=== PATIENT | male | born 1960 | race Caucasian/White ===

== ENCOUNTER 2018-01-20 15:42 | Inpatient (IN) | payer MEDICAID ==
[~2018-01-20] VITALS: Ht 182.9 cm; Wt 119.9 kg
--- NOTE | ~2018-01-20 | CN ---
PATIENT NAME:DONI GAR MEDICAL RECORD: [id number] : 62 LOCATION:D. D.2111 ADMIT DATE: 01/20/18 ACCOUNT: [id number] CONSULTING PHYSICIAN: RANJEET HACKETT MD REFERRING PHYSICIAN: LIZET CANTOR MD DATE OF CONSULTATION: 01/21/2018 CONSULT REQUESTING PHYSICIAN: Lizet Cantor MD REASON FOR CONSULTATION: Acute exacerbation of COPD, bullous emphysema. HISTORY OF PRESENT ILLNESS: Mr. Gar is a 57-year-old gentleman who has a history of COPD and smoking. The patient was visiting [place] and he flew from [place] to [place] and then he was driving back from [place]. Yesterday morning, the patient developed bronchitis, cough, and sputum production. He was feeling very hot. He had worsening shortness of breath and the patient came to the ER. He denies any leg swelling and pain. There are no night sweats. Now, he is feeling a little bit better after the nebulized medication. REVIEW OF THE SYSTEM: Mainly in the history of present illness. PAST MEDICAL HISTORY: 1. COPD. 2. Congestive heart failure. 3. Hypertension. 4. Type 2 diabetes mellitus. 5. Ex-smoker. 6. Obesity. PAST SURGICAL HISTORY: Nonsignificant. ALLERGIES: There are no known drug allergies. HOME MEDICATIONS: Lasix and metformin. His other medications are reviewed. PERSONAL AND SOCIAL HISTORY: The patient was a smoker, who quit 4 years ago. He is drinking occasionally. FAMILY HISTORY: Noncontributory. PHYSICAL EXAMINATION: GENERAL: Now, the patient is lying comfortably in bed. He is wearing nasal cannula oxygen. He is not in acute distress. VITAL SIGNS: The pulse ox is 92% on 2 liters nasal cannula. HEENT: Conjunctivae are pink. Sclerae not icteric. NECK: Supple. No JVD. CHEST: There is no wheeze and no rale. HEART: Rhythm regular. Normal sound. No murmur. ABDOMEN: Abdomen is soft. Bowel sounds present. No hepatosplenomegaly. RECTAL: Deferred. EXTREMITIES: No cyanosis. No clubbing. No pedal edema. SKIN: Warm. Normal turgor. CENTRAL NERVOUS SYSTEM: The patient is awake and alert. There is no obvious cranial nerve abnormality. The gait was not tested. CONSULT REPORT [id number] DONI GAR CT scan of the chest: There is bullous emphysema, right upper lobe worse than left. There is no PE, no pneumothorax. OTHER LAB DATA: CBC; WBC 8, hemoglobin 14.5, hematocrit 43.3, and platelet count is 318. Chemistry; sodium 138, potassium 4.2. Liver enzymes within normal range. IMPRESSION: 1. Acute hypoxic respiratory failure. 2. Acute exacerbation of COPD. 3. Acute tracheobronchitis. 4. Bullous emphysema, right more than left. 5. Congestive heart failure, most likely chronic systolic dysfunction. 6. Hypertension. 7. Type 2 diabetes mellitus. RECOMMENDATION: 1. Methylprednisolone IV, albuterol/ipratropium nebulizer. Start on Brovana, budesonide nebulizer; Mucinex DM. 2. Continue empiric antibiotic. 3. Check alpha 1 antitrypsin level and phenotype. Followup labs and chest radiograph. Dr. Cantor, thank you for involving me in the care of Mr. Gar. TRANSINT:[id number] Voice Confirmation ID: [id number] DOCUMENT ID: [id number] RANJEET HACKETT MD at 1340 CC: LIZET CANTOR [phone] DICTATION DATE: 01/21/18 1621 BAKERY DECORATOR: 01/21/18 1653 DIS IN 01/24/18 [place] [id number] [place] [address]
[2018-01-20 16:22] LABS: BASOPHILS 0.4 % (0-2); EOSINOPHILS 2.2 % (0-7); HEMATOCRIT 43.3 % (42.0-54.0); HEMOGLOBIN 14.5 g/dL (13.5-17.5); IMMATURE GRANULOCYTES 0.5 % (0-5); LYMPHOCYTES 16.1 % (15-50); MCH 30.2 pg (26.0-34.0); MCHC 33.5 g/dL (31.0-37.0); MCV 90.2 fL (80.0-100.0); MEAN PLATELET VOLUME 9.8 fL (7.4-10.4); MONOCYTES 10.2 % (2-11); NEUTROPHILS 70.6 % (40-80); PLATELET COUNT 318 10x3/uL (130-400)
[2018-01-20 16:52] LABS: ALBUMIN 3.7 g/dL (3.4-5.0); ANION GAP 13.7 mmol/L (8-16); BILIRUBIN - TOTAL 0.5 mg/dL (0.2-1.3); CALCIUM 8.7 mg/dL (8.5-10.1); CARBON DIOXIDE 27.5 mmol/L (21.0-32.0); CREATININE - SERUM 1.1 mg/dL (0.6-1.3); POTASSIUM - SERUM 4.2 mmol/L (3.5-5.1)
[2018-01-21 13:47] VITALS: BMI 37.1
[2018-01-21 17:50] VITALS: BP 162/98; Ht 182.9 cm; Wt 119.9 kg
[2018-01-21] MEDS ORDERED: PRINIVIL20 MG PO (18:16)
[2018-01-21] MEDS ORDERED: COREG25 MG PO (18:17)
[2018-01-21] MEDS ORDERED: GLUCOPHAGE500 MG PO (18:17)
[2018-01-21 19:00] VITALS: BP 157/100
[2018-01-22 04:00] VITALS: BP 161/97
[2018-01-22 09:15] VITALS: BP 128/83
[2018-01-22 11:39] VITALS: BP 143/95
[2018-01-22 11:53] LABS: BASOPHILS 0 % (0-2); EOSINOPHILS 0 % (0-7); HEMATOCRIT 42.2 % (42.0-54.0); HEMOGLOBIN 13.5 g/dL (13.5-17.5); IMMATURE GRANULOCYTES 0.4 % (0-5); LYMPHOCYTES 4.9 % (15-50); MCH 29.5 pg (26.0-34.0); MEAN PLATELET VOLUME 9.9 fL (7.4-10.4); MONOCYTES 7.6 % (2-11); NEUTROPHILS 87.1 % (40-80); PLATELET COUNT 292 10x3/uL (130-400); RBC 4.57 10x6/uL (4.20-6.10); RDW 14.6 % (11.5-14.5)
[2018-01-22 12:00] LABS: WBC 15.3 10x3/uL (4.8-10.8)
[2018-01-22 12:01] LABS: MCV 92.3 fL (80.0-100.0)
[2018-01-22 12:27] LABS: ANION GAP 13.5 mmol/L (8-16); CALCIUM 8.6 mg/dL (8.5-10.1); CARBON DIOXIDE 28.8 mmol/L (21.0-32.0); CREATININE - SERUM 1.2 mg/dL (0.6-1.3); POTASSIUM - SERUM 4.3 mmol/L (3.5-5.1)
[2018-01-22 16:43] VITALS: BP 131/84
[2018-01-22 20:00] VITALS: BP 159/93
[2018-01-23] VITALS: BP 123/83
[2018-01-23 04:00] VITALS: BP 123/65
[2018-01-23 07:30] VITALS: BP 138/94
[2018-01-23 12:06] LABS: BASOPHILS 0.1 % (0-2); EOSINOPHILS 0 % (0-7); HEMATOCRIT 47.2 % (42.0-54.0); HEMOGLOBIN 15.2 g/dL (13.5-17.5); IMMATURE GRANULOCYTES 0.4 % (0-5); LYMPHOCYTES 5.6 % (15-50); MCHC 32.2 g/dL (31.0-37.0); MCV 93.1 fL (80.0-100.0); NEUTROPHILS 83.9 % (40-80); PLATELET COUNT 321 10x3/uL (130-400); RBC 5.07 10x6/uL (4.20-6.10); RDW 14.8 % (11.5-14.5); WBC 17.1 10x3/uL (4.8-10.8)
[2018-01-23 12:30] LABS: ANION GAP 9.6 mmol/L (8-16); CALCIUM 8.8 mg/dL (8.5-10.1); CARBON DIOXIDE 35.7 mmol/L (21.0-32.0); CREATININE - SERUM 1.1 mg/dL (0.6-1.3); POTASSIUM - SERUM 4.3 mmol/L (3.5-5.1)
[2018-01-23 13:03] VITALS: BP 144/90
[2018-01-23 15:43] VITALS: BP 136/93
[2018-01-24 01:18] VITALS: BP 152/90
[2018-01-24 06:37] VITALS: BP 145/86
[2018-01-24 07:21] LABS: CALC OSMOLALITY 284 mosm/kg (275-300); CALCIUM 8.1 mg/dL (8.5-10.1); CARBON DIOXIDE 34.4 mmol/L (21.0-32.0); CHLORIDE - SERUM 99 mmol/L (98-107); GLUCOSE 212 mg/dL (74-106); POTASSIUM - SERUM 4.3 mmol/L (3.5-5.1); SODIUM 138 mmol/L (136-145); UREA NITROGEN 21 mg/dL (7-18); eGFR NON AFRICAN AMERICAN 82 mL/min (90-120)
[2018-01-24 07:25] LABS: BASOPHILS 0.1 % (0-2); EOSINOPHILS 0 % (0-7); HEMATOCRIT 44.5 % (42.0-54.0); HEMOGLOBIN 14.1 g/dL (13.5-17.5); IMMATURE GRANULOCYTES 0.1 % (0-5); LYMPHOCYTES 9.6 % (15-50); MCH 29.2 pg (26.0-34.0); MCHC 31.7 g/dL (31.0-37.0); MCV 92.1 fL (80.0-100.0); MONOCYTES 10.1 % (2-11); NEUTROPHILS 80.1 % (40-80); PLATELET COUNT 314 10x3/uL (130-400); RBC 4.83 10x6/uL (4.20-6.10); RDW 14.3 % (11.5-14.5)
[2018-01-24 07:27] LABS: WBC 8.6 10x3/uL (4.8-10.8)
[2018-01-24 08:44] VITALS: BP 147/82
[2018-01-24 11:49] VITALS: BP 149/97
[2018-01-24] MEDS ORDERED: IPRAT-ALBUT 0.5-3 ML INH (12:53)
[2018-01-24] MEDS ORDERED: PREDNISONE10 MG PO (12:54)
[2018-01-24] MEDS ORDERED: LEVAQUIN750 MG PO (12:54)
[2018-01-24] MEDS ORDERED: SYMBICORT 16010.2 GM INH (12:58)
[2018-01-24 17:00] VITALS: BP 158/115
== END 2018-01-24 19:51 | disposition home or self-care (01) | DRG 189 ==
LOC: D.ER 15:42 → D.EDHOLD 20:59 → D.M2 20:59 → D.SDCHOLD 01-21 09:42 → D.EDHOLD 01-21 09:42 → D.M2 01-21 16:39
PROVIDERS: Emergency Medicine; Family Medicine
DX: J96.01 Acute respiratory failure with hypoxia (principal); J44.0 Chronic obstructive pulmonary disease with (acute) lower respiratory infection; J44.1 Chronic obstructive pulmonary disease with (acute) exacerbation; I50.22 Chronic systolic (congestive) heart failure; J20.9 Acute bronchitis, unspecified; E66.9 Obesity, unspecified; Z68.37 Body mass index [BMI] 37.0-37.9, adult; I11.0 Hypertensive heart disease with heart failure; E11.65 Type 2 diabetes mellitus with hyperglycemia; J43.9 Emphysema, unspecified; Z87.891 Personal history of nicotine dependence

== ENCOUNTER 2018-01-25 11:44 | Inpatient (IN) | payer MEDICAID ==
[~2018-01-25] VITALS: Ht 182.9 cm; Wt 120.3 kg
--- NOTE | ~2018-01-25 | CN ---
PATIENT NAME:DONI GAR MEDICAL RECORD: [id number] : 62 LOCATION:D.MS Velez2224 ADMIT DATE: 01/25/18 ACCOUNT: [id number] CONSULTING PHYSICIAN: RANJEET HACKETT MD REFERRING PHYSICIAN: LIZET CANTOR MD DATE OF CONSULTATION: 01/25/2018 CONSULT REQUESTING PHYSICIAN: Lizet Cantor MD REASON FOR CONSULTATION: Bilateral pneumonia. HISTORY OF PRESENT ILLNESS: Mr. Gar is a 57-year-old gentleman who was just discharged yesterday. According to the patient, last night he could not sleep with worsening shortness of breath, though he got his inhaled nebulizer last night. Also, his blood sugar was about 300. The patient came in back to the ER. Chest radiograph showed that he has bilateral lower lobe infiltrate. The patient denies any fever and chill. There are no night sweats, no chest pain. REVIEW OF SYSTEMS: As in the history of present illness. PAST MEDICAL HISTORY: 1. COPD. 2. Congestive heart failure. 3. Hypertension. 4. Type 2 diabetes mellitus. 5. Obesity. PAST SURGICAL HISTORY: Nonsignificant. ALLERGIES: There are no known drug allergies. MEDICATIONS: He is on Symbicort inhaler, albuterol/ipratropium nebulizer. All other medications reviewed. PERSONAL AND SOCIAL HISTORY: The patient is an ex-smoker. He quit it 4 years ago. He is a nondrinker. FAMILY HISTORY: Noncontributory. PHYSICAL EXAMINATION: GENERAL: Now, the patient is lying comfortably. VITAL SIGNS: His SpO2 is 92% on 2 liters nasal cannula. HEENT: Conjunctivae pink, sclerae nonicteric. NECK: Supple. No JVD. CHEST: There are bilateral basal crackles and wheeze on forceful expiration. HEART: Rhythm regular, normal sound, no murmur. ABDOMEN: Soft. Bowel sounds present. No hepatosplenomegaly. RECTAL: Deferred. EXTREMITIES: No cyanosis, no clubbing, no pedal edema. SKIN: Extremities are warm, normal turgor. CENTRAL NERVOUS SYSTEM: The patient is awake and alert. There are no obvious cranial nerve abnormalities. The gait was not tested. CHEST RADIOGRAPH: Shows bilateral infiltrate. CONSULT REPORT [id number] DONI GAR OTHER LABORATORY DATA: CBC: WBC 7.1, hemoglobin 15.5, hematocrit 45.7, and the platelet count is 281. Chemistry: Sodium 135, potassium 3.3, and creatinine 1.4. IMPRESSION: 1. Acute hypoxic respiratory failure. 2. Acute exacerbation of chronic obstructive pulmonary disease. 3. Bilateral lower lobe pneumonia, most likely hospital-acquired pneumonia with the patient's recent hospitalization. 4. Bullous emphysema, right more than the left. 5. Hypokalemia. 6. Uncontrolled hyperglycemia. 7. Congestive heart failure, most likely chronic systolic dysfunction. RECOMMENDATIONS: 1. Start methylprednisolone IV, Levaquin and cefepime IV to cover for the hospital-acquired pneumonia. 2. Singulair 10 mg a day. 3. Albuterol and ipratropium nebulizer. 4. Brovana and budesonide nebulizer. 5. Supplemental oxygen. 6. We will follow up labs and chest radiograph in the morning. Dr. Cantor thank you for involving me in the care of Mr. Gar. TRANSINT:[id number] Voice Confirmation ID: [id number] DOCUMENT ID: [id number] RANJEET HACKETT MD at 1340 CC: LIZET CANTOR [phone] DICTATION DATE: 01/25/18 1534 DIGITAL MARKETING INTERN: 01/25/18 2352 DIS IN 01/30/18 [place] [id number] [facility] [place] [address]
[~2018-01-25 11:44] MED LIST: COREG25 MG PO; GLUCOPHAGE500 MG PO; IPRAT-ALBUT 0.5-3 ML INH; LEVAQUIN750 MG PO; PREDNISONE10 MG PO; PRINIVIL20 MG PO; SYMBICORT 16010.2 GM INH
[2018-01-25 12:22] LABS: BASOPHILS 0.1 % (0-2); EOSINOPHILS 0.6 % (0-7); HEMATOCRIT 47.5 % (42.0-54.0); HEMOGLOBIN 15.5 g/dL (13.5-17.5); IMMATURE GRANULOCYTES 0.1 % (0-5); LYMPHOCYTES 16.8 % (15-50); MCH 29.9 pg (26.0-34.0); MCHC 32.6 g/dL (31.0-37.0); MCV 91.7 fL (80.0-100.0); MEAN PLATELET VOLUME 10.1 fL (7.4-10.4); NEUTROPHILS 70.4 % (40-80); PLATELET COUNT 289 10x3/uL (130-400); RBC 5.18 10x6/uL (4.20-6.10); RDW 14.4 % (11.5-14.5); WBC 7.1 10x3/uL (4.8-10.8)
[2018-01-25 12:29] LABS: ALBUMIN 3.1 g/dL (3.4-5.0); ANION GAP 7.3 mmol/L (8-16); BILIRUBIN - TOTAL 0.43 mg/dL (0.2-1.3); CALCIUM 8.8 mg/dL (8.5-10.1); PROTEIN - SERUM 7.1 g/dL (6.4-8.2)
[2018-01-25 12:31] LABS: CREATININE - SERUM 1.4 mg/dL (0.6-1.3); POTASSIUM - SERUM 3.3 mmol/L (3.5-5.1)
[2018-01-25 16:58] VITALS: BP 140/89
[2018-01-25 19:29] LABS: APPEARANCE CLEAR (CLEAR); BILIRUBIN NEGATIVE (NEGATIVE); COLOR YELLOW (YELLOW); GLUCOSE NEGATIVE (NEGATIVE); KETONE NEGATIVE (NEGATIVE); NITRITE NEGATIVE (NEGATIVE); PROTEIN NEGATIVE (NEGATIVE); SPECIFIC GRAVITY 1.015 (1.005-1.020); UROBILINOGEN NORMAL (NORMAL)
[2018-01-25 19:31] LABS: BACTERIA FEW /hpf (NONE SEEN); EPITHELIAL CELLS 0-5 /hpf (0-5); RED CELLS - URINE OCC /hpf (0-5)
[2018-01-25 23:07] VITALS: BP 116/79
[2018-01-26 01:50] VITALS: BP 116/79; BMI 35.9
[2018-01-26 05:06] VITALS: BP 102/70
[2018-01-26 05:18] LABS: BASOPHILS 0.2 % (0-2); EOSINOPHILS 0 % (0-7); HEMATOCRIT 45.3 % (42.0-54.0); HEMOGLOBIN 14.3 g/dL (13.5-17.5); IMMATURE GRANULOCYTES 0.2 % (0-5); MCH 28.8 pg (26.0-34.0); MCHC 31.6 g/dL (31.0-37.0); MCV 91.1 fL (80.0-100.0); MEAN PLATELET VOLUME 10.5 fL (7.4-10.4); MONOCYTES 5.5 % (2-11); NEUTROPHILS 82.1 % (40-80); PLATELET COUNT 273 10x3/uL (130-400); RBC 4.97 10x6/uL (4.20-6.10); RDW 14.2 % (11.5-14.5); WBC 5.6 10x3/uL (4.8-10.8)
[2018-01-26 05:42] LABS: ALBUMIN 2.9 g/dL (3.4-5.0); ALKALINE PHOSPHATASE 62 U/L (46-116); ALT (SGPT) 55 U/L (10-68); BILIRUBIN - TOTAL 0.31 mg/dL (0.2-1.3); CALC OSMOLALITY 286 mosm/kg (275-300); CALCIUM 8.5 mg/dL (8.5-10.1); CARBON DIOXIDE 29.1 mmol/L (21.0-32.0); CHLORIDE - SERUM 97 mmol/L (98-107); CKMB 0.6 U/L (0.0-3.6); CREATININE - SERUM 1.1 mg/dL (0.6-1.3); GLUCOSE 288 mg/dL (74-106); PROTEIN - SERUM 6.9 g/dL (6.4-8.2); SODIUM 135 mmol/L (136-145); UREA NITROGEN 29 mg/dL (7-18); eGFR NON AFRICAN AMERICAN 73 mL/min (90-120)
[2018-01-26 05:51] LABS: POTASSIUM - SERUM 4.2 mmol/L (3.5-5.1); TROPONIN-I < 0.017 ng/mL (0.000-0.060)
[2018-01-26 08:18] VITALS: BP 119/80
[2018-01-26 13:20] VITALS: BP 152/92
[2018-01-26 15:15] VITALS: Ht 182.9 cm; Wt 120.3 kg
[2018-01-26 16:47] VITALS: BP 143/97
[2018-01-26 20:38] VITALS: BP 140/94
[2018-01-27 00:44] VITALS: BP 121/82
[2018-01-27 06:38] LABS: BASOPHILS 0.1 % (0-2); EOSINOPHILS 0 % (0-7); HEMATOCRIT 44.2 % (42.0-54.0); HEMOGLOBIN 14.2 g/dL (13.5-17.5); IMMATURE GRANULOCYTES 0.2 % (0-5); MCH 29.2 pg (26.0-34.0); MCHC 32.1 g/dL (31.0-37.0); MCV 90.8 fL (80.0-100.0); MEAN PLATELET VOLUME 10.5 fL (7.4-10.4); MONOCYTES 8.9 % (2-11); NEUTROPHILS 78.8 % (40-80); PLATELET COUNT 272 10x3/uL (130-400); RBC 4.87 10x6/uL (4.20-6.10); RDW 13.7 % (11.5-14.5)
[2018-01-27 06:41] LABS: WBC 8.7 10x3/uL (4.8-10.8)
[2018-01-27 07:06] LABS: ALBUMIN 2.9 g/dL (3.4-5.0); ALKALINE PHOSPHATASE 60 U/L (46-116); ALT (SGPT) 49 U/L (10-68); BILIRUBIN - TOTAL 0.26 mg/dL (0.2-1.3); CALC OSMOLALITY 283 mosm/kg (275-300); CALCIUM 8.7 mg/dL (8.5-10.1); CARBON DIOXIDE 30.9 mmol/L (21.0-32.0); CHLORIDE - SERUM 97 mmol/L (98-107); CREATININE - SERUM 0.9 mg/dL (0.6-1.3); GLUCOSE 249 mg/dL (74-106); POTASSIUM - SERUM 4.8 mmol/L (3.5-5.1); PROTEIN - SERUM 6.6 g/dL (6.4-8.2); SODIUM 136 mmol/L (136-145); UREA NITROGEN 25 mg/dL (7-18); eGFR NON AFRICAN AMERICAN > 90 mL/min (90-120)
[2018-01-27 08:39] VITALS: BP 144/64
[2018-01-27 13:36] VITALS: BP 112/82
[2018-01-27 16:07] VITALS: BP 122/81
[2018-01-27 22:18] VITALS: BP 130/82
[2018-01-28 04:29] VITALS: BP 119/71
[2018-01-28 06:24] LABS: ALBUMIN 2.9 g/dL (3.4-5.0); ALKALINE PHOSPHATASE 57 U/L (46-116); ALT (SGPT) 43 U/L (10-68); BILIRUBIN - TOTAL 0.25 mg/dL (0.2-1.3); CALCIUM 8.9 mg/dL (8.5-10.1); CARBON DIOXIDE 31.1 mmol/L (21.0-32.0); CHLORIDE - SERUM 99 mmol/L (98-107); POTASSIUM - SERUM 4.1 mmol/L (3.5-5.1); PROTEIN - SERUM 7.1 g/dL (6.4-8.2); SODIUM 135 mmol/L (136-145); UREA NITROGEN 27 mg/dL (7-18); eGFR NON AFRICAN AMERICAN 82 mL/min (90-120)
[2018-01-28 06:25] LABS: CALC OSMOLALITY 278 mosm/kg (275-300); GLUCOSE 174 mg/dL (74-106)
[2018-01-28 06:45] LABS: BASOPHILS 0.1 % (0-2); EOSINOPHILS 0 % (0-7); HEMATOCRIT 44.6 % (42.0-54.0); HEMOGLOBIN 14.5 g/dL (13.5-17.5); IMMATURE GRANULOCYTES 0.4 % (0-5); LYMPHOCYTES 12.7 % (15-50); MCH 29.4 pg (26.0-34.0); MCHC 32.5 g/dL (31.0-37.0); MCV 90.3 fL (80.0-100.0); MEAN PLATELET VOLUME 10.5 fL (7.4-10.4); MONOCYTES 11.8 % (2-11); PLATELET COUNT 303 10x3/uL (130-400); RBC 4.94 10x6/uL (4.20-6.10); RDW 13.7 % (11.5-14.5)
[2018-01-28 09:11] VITALS: BP 134/84
[2018-01-28 12:46] VITALS: BP 132/89
[2018-01-28 16:46] VITALS: BP 143/94
[2018-01-28 20:00] VITALS: BP 140/84
[2018-01-29] VITALS: BP 106/64
[2018-01-29 04:00] VITALS: BP 141/83
[2018-01-29 05:49] LABS: BASOPHILS 0.1 % (0-2); EOSINOPHILS 0.6 % (0-7); HEMATOCRIT 43.4 % (42.0-54.0); HEMOGLOBIN 14.1 g/dL (13.5-17.5); IMMATURE GRANULOCYTES 0.7 % (0-5); LYMPHOCYTES 19.7 % (15-50); MCH 29.1 pg (26.0-34.0); MCHC 32.5 g/dL (31.0-37.0); MCV 89.5 fL (80.0-100.0); MEAN PLATELET VOLUME 10.3 fL (7.4-10.4); MONOCYTES 16.7 % (2-11); NEUTROPHILS 62.2 % (40-80); PLATELET COUNT 296 10x3/uL (130-400); RBC 4.85 10x6/uL (4.20-6.10); RDW 13.6 % (11.5-14.5)
[2018-01-29 06:11] LABS: ALBUMIN 2.6 g/dL (3.4-5.0); ALKALINE PHOSPHATASE 50 U/L (46-116); ALT (SGPT) 43 U/L (10-68); CALC OSMOLALITY 281 mosm/kg (275-300); CALCIUM 8.1 mg/dL (8.5-10.1); CARBON DIOXIDE 31.4 mmol/L (21.0-32.0); CHLORIDE - SERUM 99 mmol/L (98-107); CREATININE - SERUM 0.9 mg/dL (0.6-1.3); POTASSIUM - SERUM 3.5 mmol/L (3.5-5.1); PROTEIN - SERUM 6.4 g/dL (6.4-8.2); SODIUM 138 mmol/L (136-145); UREA NITROGEN 27 mg/dL (7-18); eGFR NON AFRICAN AMERICAN > 90 mL/min (90-120)
[2018-01-29 06:12] LABS: GLUCOSE 124 mg/dL (74-106)
[2018-01-29 08:48] VITALS: BP 140/90
[2018-01-29 12:13] VITALS: BP 119/78
[2018-01-29 16:12] VITALS: BP 120/70
[2018-01-29 21:39] VITALS: BP 136/89
[2018-01-30 05:33] LABS: BASOPHILS 0.1 % (0-2); EOSINOPHILS 0.9 % (0-7); HEMATOCRIT 43.1 % (42.0-54.0); IMMATURE GRANULOCYTES 1.5 % (0-5); LYMPHOCYTES 24.5 % (15-50); MCH 29.2 pg (26.0-34.0); MCHC 32.5 g/dL (31.0-37.0); MCV 89.8 fL (80.0-100.0); MEAN PLATELET VOLUME 10.2 fL (7.4-10.4); MONOCYTES 13.3 % (2-11); NEUTROPHILS 59.7 % (40-80); PLATELET COUNT 297 10x3/uL (130-400); RDW 13.9 % (11.5-14.5); WBC 11.6 10x3/uL (4.8-10.8)
[2018-01-30 05:34] VITALS: BP 140/82
[2018-01-30 05:50] LABS: ALBUMIN 2.6 g/dL (3.4-5.0); ALKALINE PHOSPHATASE 54 U/L (46-116); ALT (SGPT) 47 U/L (10-68); CALC OSMOLALITY 286 mosm/kg (275-300); CALCIUM 8.3 mg/dL (8.5-10.1); CARBON DIOXIDE 33.9 mmol/L (21.0-32.0); CHLORIDE - SERUM 99 mmol/L (98-107); POTASSIUM - SERUM 3.6 mmol/L (3.5-5.1); PROTEIN - SERUM 6.4 g/dL (6.4-8.2); SODIUM 138 mmol/L (136-145); UREA NITROGEN 27 mg/dL (7-18); eGFR NON AFRICAN AMERICAN 82 mL/min (90-120)
[2018-01-30 05:51] LABS: GLUCOSE 213 mg/dL (74-106)
[2018-01-30 08:09] VITALS: BP 122/87
[2018-01-30] MEDS ORDERED: VIBRAMYCIN 100100 MG PO (08:50)
[2018-01-30] MEDS ORDERED: OMNICEF300 MG PO (08:51)
[2018-01-30 12:52] VITALS: BP 114/79
== END 2018-01-30 17:30 | disposition home or self-care (01) | DRG 177 ==
LOC: D.ER 11:44 → D.MS 14:42
PROVIDERS: Emergency Medicine; Family Medicine
DX: J15.6 Pneumonia due to other Gram-negative bacteria (principal); J96.01 Acute respiratory failure with hypoxia; J44.0 Chronic obstructive pulmonary disease with (acute) lower respiratory infection; J44.1 Chronic obstructive pulmonary disease with (acute) exacerbation; I42.9 Cardiomyopathy, unspecified; I50.32 Chronic diastolic (congestive) heart failure; N17.9 Acute kidney failure, unspecified; J15.212 Pneumonia due to Methicillin resistant Staphylococcus aureus; E87.6 Hypokalemia; E11.65 Type 2 diabetes mellitus with hyperglycemia; I11.0 Hypertensive heart disease with heart failure; K76.0 Fatty (change of) liver, not elsewhere classified; I25.10 Atherosclerotic heart disease of native coronary artery without angina pectoris; K21.9 Gastro-esophageal reflux disease without esophagitis; R19.7 Diarrhea, unspecified; Z87.891 Personal history of nicotine dependence

== ENCOUNTER → 2018-05-08 09:37 | Outpatient (CLI) | payer MEDICAID ==
[2018-01-26 15:15] VITALS: BMI 35.8
[~2018-05-08 09:37] MED LIST changes: +OMNICEF300 MG PO; +VIBRAMYCIN 100100 MG PO
== END | disposition home or self-care (01) ==
LOC: D.RT 09:37
DX: J18.9 Pneumonia, unspecified organism (principal); J44.9 Chronic obstructive pulmonary disease, unspecified

== ENCOUNTER → 2018-06-24 16:10 | Outpatient (CLI) | payer MEDICAID ==
[2018-01-26 15:15] VITALS: BMI 35.8
[~2018-06-24 16:10] MED LIST changes: +AVAPRO300 MG PO; +COMBIVENT RESPIM4 GM INH; +LASIX40 MG PO; +PRILOSEC PO; +PROTONIX40 MG PO
== END | disposition home or self-care (01) ==
LOC: D.CT 16:10
DX: R23.8 Other skin changes (principal)

== ENCOUNTER → 2018-07-08 10:37 | Outpatient (CLI) | payer MEDICAID ==
[2018-01-26 15:15] VITALS: BMI 35.8
== END | disposition home or self-care (01) ==
LOC: D.NM 10:37
DX: R07.9 Chest pain, unspecified (principal)

== ENCOUNTER 2018-07-30 06:33 | Outpatient (CLI) | payer MEDICAID ==
[~2018-07-30] VITALS: Ht 182.9 cm; Wt 128.2 kg
--- NOTE | ~2018-07-30 | HEMODYNAMI ---
PATIENT:DONI GAR MEDICAL RECORD: [id number] : 62 LOCATION:DDAPNHEY ADMISSION DATE: 07/30/18 Generatedon:07/30/20189:07 Patient name: DONI GAR Patient #: [id number] SSN: : 1960 Date of study: 07/30/2018 Page: Of Hemodynamic Procedure Report Patient Data Patient Demographics Procedure consent was obtained First Name: DONI Gender: Male Last Name: CONG : 1960 [facility] Initial: ZHANE Age: 58 year(s) Patient #: [id number] Race: Additional ID: [id number] Contact details Address: [address] [place] [address] ROAD State: [place] City: [facility] Zip code: [address] Past Medical History Allergies: No known allergies Admission Admission Data Admission Date: 07/30/2018 Admission Time: 6:33 Procedure Procedure Types Cath Procedure Diagnostic Procedure C LH w/Coronaries Sedation Charges Moderate Sedation up to 15 minutes Procedure Description Procedure Date Procedure Date: 07/30/2018 Procedure Start Time: 8:52 Procedure End Time: 9:05 Procedure Staff Name Function Tunde Willett MD Performing Physician Sy Pavon RT Monitor Larisa Rodarte RT Scrub Rajeev Owens RN Nurse Procedure Data Cath Procedure Fluoroscopy Diagnostic fluoroscopy Total fluoroscopy Time: 2.9 time: 2.9 min min Diagnostic fluoroscopy Total fluoroscopy dose: 784 dose: 784 mGy mGy Contrast Material Contrast Material Type Amount (ml) Isovue 300 61 Entry Location Entry Primary Successful Side Size Upsize Upsize Entry Closure Villalba ccessful Closure Location (Fr) 1 (Fr) 2 (Fr) Remarks Device Remarks Radial Right 6 Fr Mechanical artery Short Compression Estimated blood loss: 5 ml Diagnostic catheters Device Type Used For End Catheter Placement DIAGNOSTIC Parminder 110cm Procedure 5Fr catheter ([id number]) Procedure Complications No complications Procedure Medications Medication Administration Route Dosage Oxygen etCO2 Nasal cannula 2 l/min Heparin Flush Bag added to field 2 bags (1000units/500ml NS) 0.9% NaCl I.V. 100 ml/hr Radial Cocktail added to field 1 syringe (Verapomil 2mg/Nitro 400mcg/Heparin 1500units) Fentanyl I.V. 50 mcg Versed I.V. 1 mg Fentanyl I.V. 50 mcg Versed I.V. 1 mg Radial Cocktail I.A. 1 syringe (Verapomil 2mg/Nitro 400mcg/Heparin 1500units) Hemodynamics Rest Heart Rate: 0 (bpm) Pressure Samples Time Site Value (mmHg) Purpose Heart Use Rate(bpm) 8:56 LV 162/32,26 Snapshot 90 8:57 LV 155/3,23 Snapshot 77 8:57 LV 163/-1,21 Snapshot 73 8:57 AO 145/97(119) Pullback 82 8:57 LV 159/10,25 Pullback 82 Gradients Valve Time Site 1 Site 2 Mean SEP/DFP Peak To Heart Use (mmHg) (sec/min) Peak Rate (mmHg) (bpm) Aortic 8:57 LV AO 7 23 14 82 159/10,25 145/97(119) Calculations Valve P-P Mean Valve Index Valve Source Name Gradient Area Flow (cm2) Aortic 14 7 14 7 Snapshots Pre Cath Intra NCS Post Cath Vital Signs Time Heart Resp SPO2 etCO2 NIBP (mmHg) Rhythm Pain Sedation Rate (ipm) (%) (mmHg) Status Level (bpm) 8:41:44 78 18 97 0 202/135(176) NSR 0 (11) 10(A) , No pain 8:46:17 75 18 92 29.3 201/120(166) NSR 0 (11) 10(A) , No pain 8:50:51 67 18 88 27.8 195/112(148) NSR 0 (11) 10(A) , No pain 8:55:26 66 19 92 45.9 169/105(132) NSR 0 (11) 9(A) , No pain 8:59:50 69 17 91 45.2 175/94(130) NSR 0 (11) 9(A) , No pain 9:04:18 64 18 94 43.7 158/100(128) NSR 0 (11) 10(A) , No pain Medications Time Medication Route Dose Verified Delivered Reason Notes Effectiveness by by 8:41:56 Oxygen etCO2 2 l/min Tunde Willett MD Owens RN physician cannula 8:42:05 Heparin Flush added 2 bags Tunde Rajeev used for Bag to Brennon Owens RN procedure (1000units/500ml field NS) 8:42:16 0.9% NaCl I.V. 100 Tunde Rajeev Per ml/hr Brennon Owens RN physician 8:42:24 Radial Cocktail added 1 Tunde Rajeev used for (Verapomil to syringe Brennon Owens RN procedure 2mg/Nitro field 400mcg/Heparin 1500units) 8:46:09 Fentanyl I.V. 50 mcg Tunde Rajeev for sedation Brennon Owens RN 8:46:15 Versed I.V. 1 mg Tunde Rajeev for sedation Brennon Owens RN 8:50:14 Fentanyl I.V. 50 mcg Tunde Rajeev for sedation Brennon Owens RN 8:50:19 Versed I.V. 1 mg Tunde Rajeev for sedation Brennon Owens RN 8:54:41 Radial Cocktail I.A. 1 Tunde Tunde for (Verapomil syringe Brennon Willett MD vasodilation 2mg/Nitro 400mcg/Heparin 1500units) Procedure Log Time Note 8:20:24 Rajeev Owens RN sent for patient. Start room use. 8:25:59 Informed consent obtained and on chart 8:26:16 Diagnostic Cath Status : Elective 8:26:25 Time tracking: Regular hours (M-F 7:00 - 5:00) 8:26:29 Plan of Care:Hemodynamics will remain stable., Cardiac rhythm will remain stable., Comfort level will be maintained., Respiratory function will remain adequate., Patient/ family verbilizes understanding of procedure., Procedure tolerated without complication., Recovers from procedure without complications.. 8:32:51 Patient received from Pre/Post Procedure Room to [facility] Alert and oriented. Tansferred to table in Supine position. 8:32:53 Warm blankets applied, and kimberly hugger turned on for patient comfort. 8:32:53 Correct patient and procedure confirmed by team. 8:32:54 ECG and BP/O2 sat monitors applied to patient. 8:39:14 Vital chart was started 8:39:55 Baseline sample Acquired. 8:40:01 Rhythm: sinus rhythm 8:40:03 Baseline sample Acquired. 8:40:20 Baseline sample Acquired. 8:40:25 Full Disclosure recording started 8:40:37 H&P Date Dictated: 07/16/2018 Within 30 days and on chart., H&P Addendum completed by physician on day of procedure. (MUST COMPLETE FOR ALL OUTPATIENTS). 8:40:38 Pre-procedure instructions explained to patient. 8:40:44 Pre-op teaching completed and patient verbalized understanding. 8:40:46 Family in patients room. 8:40:49 Patient NPO since Midnight. 8:40:55 Patient allergic to No known allergies 8:41:56 Oxygen 2 l/min etCO2 Nasal cannula was administered by Rajeev Owens RN; Per physician; 8:42:02 Is the patient allergic to Iodine/contrast media? No. 8:42:05 Heparin Flush Bag (1000units/500ml NS) 2 bags added to field was administered by Rajeev Owens RN; used for procedure; 8:42:15 Is patient on blood thinner?No 8:42:16 0.9% NaCl 100 ml/hr I.V. was administered by Rajeev Owens RN; Per physician; 8:42:19 Patient diabetic? Yes. 8:42:21 If diabetic: On Metformin? Yes 8:42:24 Radial Cocktail (Verapomil 2mg/Nitro 400mcg/Heparin 1500units) 1 syringe added to field was administered by Rajeev Owens RN; used for procedure; 8:42:26 If on Metformin: Last Dose? 07/28/2018 8:42:34 Previous problem with sedation/anesthesia? No ? 8:42:42 Snore? Yes 8:42:42 Sleep apnea? Yes 8:42:44 Deviated septum? No 8:42:45 Opens mouth fully? Yes 8:42:46 Sticks out tongue? Yes 8:42:55 Airway obstruction? Yes "Lung Issues" 8:43:05 Dentures? Yes IN 8:43:20 Pre procedure: right dorsailis pedis pulse 2+ Normal; easily identifiable; not easily obliterated 8:43:22 Modified Darek's test Ulnar < 7 seconds 8:43:24 Patient pain scale 0/10 ?. 8:43:29 IV patent on arrival in left forearm with 0.9% NaCl at [facility]. 8:43:32 Lab results completed and on chart. 8:43:36 Right Radial & Right Groin area was prepped with chlora-prep and draped in sterile fashion 8:43:37 Alarms reviewed by R. N. 8:43:38 Sharps counted by scrub and verified by R.N. 8:43:40 Use device set Radial Dx or PCI 8:43:41 ACIST Syringe (66250) opened to sterile field. 8:43:41 Medline Cath Pack ([id number]) opened to sterile field. 8:43:42 Bag Decanter (2002S) opened to sterile field. 8:43:42 DIAGNOSTIC WIRE .035 260cm J wire (400990) opened to sterile field. 8:43:43 ACIST Hand Control (95900) opened to sterile field. 8:43:43 ACIST Manifold (09868) opened to sterile field. 8:43:47 MBrace Wrist Support ([id number]) opened to sterile field. 8:43:49 SHEATH 6Fr Prelude Radial ([id number]) opened to sterile field. 8:45:40 Physician arrived 8:45:41 --------ALL STOP TIME OUT------ 8:45:42 Final Timeout: patient, procedure, and site verified with staff and physician. All members of the team are in agreement. 8:45:45 Right Radial & Right Groin site verified by team. 8:45:49 Physical assessment completed. ASA score P 2 - A patient with mild systemic disease as per Tunde Willett MD. 8:45:52 Sedation plan: IV Moderate Sedation Medication:Versed, Fentanyl 8:46:09 Fentanyl 50 mcg I.V. was administered by Rajeev Owens RN; for sedation; 8:46:15 Versed 1 mg I.V. was administered by Rajeev Owens RN; for sedation; 8:50:14 Fentanyl 50 mcg I.V. was administered by Rajeev Owens RN; for sedation; 8:50:19 Versed 1 mg I.V. was administered by Rajeev Owens RN; for sedation; 8:51:42 Zero performed for pressure channel P1 8:51:54 Zero performed for pressure channel P1 8:52:06 Baseline sample Acquired. 8:52:12 Procedure started. 8:52:15 Local anesthetic to right radial artery with Lidocaine 2% by Tunde Willett MD.INITIAL ACCESS ONLY 8:54:21 A 6 Fr Short sheath was inserted into the Right Radial artery 8:54:27 A DIAGNOSTIC Parminder 110cm 5Fr catheter (254001) was advanced over the wire and used for Procedure. 8:54:41 Radial Cocktail (Verapomil 2mg/Nitro 400mcg/Heparin 1500units) 1 syringe I.A. was administered by Tunde Willett MD; for vasodilation; 8:56:38 LV hemodynamics recorded. 8:57:01 LV gram done using COPE 8:57:13 Injector settings: Ml/sec: 5, Volume: 15, 8:57:18 EF : 55 % 8:58:06 RCA angiography performed. 8:59:13 LCA angiography performed. 9:00:16 Catheter removed. 9:01:01 TR BAND Large ([id number]) opened to sterile field. 9:01:29 Sheath removed intact; hemostasis achieved with Mechanical Compression to the Right Radial artery. 9:01:33 Procedure ended.(Physican Out) 9:01:58 Fluoroscopy time 02.90 minutes. 9:02:05 Fluoroscopy dose: 784 mGy 9:02:05 Flurop Dose total: 784 9:02:18 Contrast amount:Isovue 300 61ml. 9:02:19 Sharps counted by scrub and verified by R.N. 9:04:08 TR band inflated with 13cc of air. 9:04:09 Insertion/operative site no bleeding no hematoma. 9:04:16 Post right radial artery:stable, soft, clean and dry 9:04:17 Post Procedure Pulses reassessed and unchanged 9:04:19 Post-procedure physical assessment completed. ASA score P 2 - A patient with mild systemic disease as per Tunde Willett MD. 9:04:22 Post procedure rhythm: unchanged. 9:04:24 Estimated blood loss: 5 ml 9:04:25 Post procedure instruction explained to patient.Patient verbalizes understanding. 9:04:25 Patient needs reinforcement of post procedure teaching. 9:04:40 Procedure type changed to Cath procedure, Diagnostic procedure, LHC, LHC w/Coronaries, Sedation Charges, Moderate Sedation up to 15 minutes 9:05:10 Procedure and supply charges have been captured, reviewed, submitted and are correct. 9:05:12 Procedure Complication : No complications 9:05:16 Vital chart was stopped 9:05:17 See physician's report for complete and final results. 9:05:18 Report given to Pre/Post Procedure Room. 9:05:20 Patient transfered to Pre/Post Procedure Room with Stretcher. 9:05:22 Procedure ended. 9:05:22 Full Disclosure recording stopped 9:05:27 End room use (Document Last) Device Usage Item Name Manufacture Quantity Catalog Number Hospital Part Current M inimal Lot# / Charge Number Stock Stock Serial# Code ACIST Syringe Acist 1 66572 636269 706613 252042 2 0 (02533) Medical [employer] Inc Medline Cath Cardinal 1 [id number] 765775 59458 968800 5 Pack Health ([id number]) Bag Decanter Microtek 1 2001S 935269 12800 744688 5 (2001S) Medical Inc. DIAGNOSTIC WIRE [facility] [place] 1 033825 838842 476498 593490 3 0 .035 260cm J wire (987462) ACIST Hand Acist 1 01463 321726 037064 033686 5 Control (03546) [employer] Inc ACIST Manifold Acist 1 07350 470437 616129 521950 5 (57308) [employer] Inc MBrace Wrist Advanced 1 140-0250-00 363449 77871 728648 5 Support Vascular ([id number]) Dynamics SHEATH 6Fr Merit 1 [id number] 681786 119995 163398 5 Prelude Radial Medical ([id number]) DIAGNOSTIC Terumo 1 40-6024 934908 206225 214497 5 Parminder 110cm 5Fr catheter (809616) TR BAND Large Terumo 1 [id number] 672678 852022 173173 4 0 ([id number]) Signature Audit [place] Stage Time Signature Unsigned Intra-Procedure 07/30/2018 Sy Pavon 9:07:05 AM RT(R) Signatures Monitor : Sy Pavon RT Signature : Date : Time : [facility] [address] [place] [address]
[~2018-07-30 06:33] MED LIST changes: -AVAPRO300 MG PO; -COMBIVENT RESPIM4 GM INH; -LASIX40 MG PO; -PRILOSEC PO; -PROTONIX40 MG PO
[2018-07-30] MEDS ORDERED: COMBIVENT RESPIM4 GM INH (06:59)
[2018-07-30] MEDS ORDERED: AVAPRO300 MG PO (07:00)
[2018-07-30] MEDS ORDERED: LASIX40 MG PO (07:01)
[2018-07-30] MEDS ORDERED: PROTONIX40 MG PO (07:01)
[2018-07-30] MEDS ORDERED: PRILOSEC PO (07:02)
[2018-07-30 07:07] VITALS: BP 173/104; Ht 182.9 cm; Wt 128.2 kg
[2018-07-30 07:09] LABS: BASOPHILS 0.5 % (0-2); EOSINOPHILS 2.9 % (0-7); HEMATOCRIT 43.8 % (42.0-54.0); HEMOGLOBIN 14.6 g/dL (13.5-17.5); IMMATURE GRANULOCYTES 0.2 % (0-5); LYMPHOCYTES 23.9 % (15-50); MCH 29.2 pg (26.0-34.0); MCHC 33.3 g/dL (31.0-37.0); MCV 87.6 fL (80.0-100.0); MONOCYTES 11.9 % (2-11); NEUTROPHILS 60.6 % (40-80); PLATELET COUNT 305 10x3/uL (130-400); RDW 14.5 % (11.5-14.5); WBC 9.2 10x3/uL (4.8-10.8)
[2018-07-30 07:26] LABS: ANION GAP 11.8 mmol/L (8-16); CALCIUM 8.3 mg/dL (8.5-10.1); CARBON DIOXIDE 29.2 mmol/L (21.0-32.0); CREATININE - SERUM 1.2 mg/dL (0.6-1.3)
== END 2018-07-30 11:30 | disposition home or self-care (01) ==
LOC: D.CATH 06:33
PROVIDERS: Internal Medicine Cardiovascular Disease
DX: I20.9 Angina pectoris, unspecified (principal); I11.0 Hypertensive heart disease with heart failure; I50.9 Heart failure, unspecified; J44.9 Chronic obstructive pulmonary disease, unspecified; Z87.891 Personal history of nicotine dependence

== ENCOUNTER → 2018-08-25 13:15 | Outpatient (CLI) | payer MEDICAID ==
[2018-07-30 07:07] VITALS: BMI 38.3
[~2018-08-25 13:15] MED LIST changes: +ASPIRIN EC81 M1 PO; +AVAPRO300 MG PO; +CARDIZEM CD120 MG PO; +CHRONULAC30 ML PO; +COMBIVENT RESPIM4 GM INH; +ELIQUIS2.5 MG PO; +LASIX40 MG PO; +MUCINEX DM ER1 EAC1 PO; +PERCOCET 5-3251 TAB PO; +PRILOSEC PO; +PROTONIX40 MG PO; +SINGULAIR10 MG PO; +VENTOLIN HFA18 GM INH; +fentanyl TRANSDERM
== END | disposition home or self-care (01) ==
LOC: D.NM 08-21 13:00
DX: J43.9 Emphysema, unspecified (principal)

== ENCOUNTER 2018-09-04 05:00 | Inpatient (IN) | payer MEDICAID ==
[2018-09-03 12:09] LABS: HEMOGLOBIN 14.6 g/dL (13.5-17.5); MCH 29.7 pg (26.0-34.0); MCHC 33.2 g/dL (31.0-37.0); MCV 89.4 fL (80.0-100.0); MEAN PLATELET VOLUME 10.1 fL (7.4-10.4); RBC 4.92 10x6/uL (4.20-6.10); RDW 14.8 % (11.5-14.5); WBC 7.9 10x3/uL (4.8-10.8)
[2018-09-03 12:13] LABS: APPEARANCE CLEAR (CLEAR); COLOR YELLOW (YELLOW)
[2018-09-03 12:14] LABS: BILIRUBIN NEGATIVE (NEGATIVE); GLUCOSE NEGATIVE (NEGATIVE); KETONE NEGATIVE (NEGATIVE); NITRITE NEGATIVE (NEGATIVE); PROTEIN NEGATIVE (NEGATIVE); SPECIFIC GRAVITY 1.005 (1.005-1.020); UROBILINOGEN NORMAL (NORMAL)
[2018-09-03 12:21] LABS: APTT 29.6 SECONDS (22.8-39.4); INR 1.05 (0.85-1.17); PROTIME 13.3 SECONDS (11.6-15.0)
[2018-09-03 12:29] LABS: ALBUMIN 3.7 g/dL (3.4-5.0); ALKALINE PHOSPHATASE 73 U/L (46-116); ALT (SGPT) 51 U/L (10-68); BILIRUBIN - TOTAL 0.56 mg/dL (0.2-1.3); CALC OSMOLALITY 279 mosm/kg (275-300); CALCIUM 9.1 mg/dL (8.5-10.1); CARBON DIOXIDE 28.4 mmol/L (21.0-32.0); CHLORIDE - SERUM 101 mmol/L (98-107); GLUCOSE 120 mg/dL (74-106); POTASSIUM - SERUM 4.3 mmol/L (3.5-5.1); PROTEIN - SERUM 7.8 g/dL (6.4-8.2); SODIUM 139 mmol/L (136-145); UREA NITROGEN 14 mg/dL (7-18); eGFR NON AFRICAN AMERICAN 82 mL/min (90-120)
[2018-09-04] VITALS (21 sets, daily range): BP systolic 98–141; BP diastolic 65–95; BMI 38.3
[~2018-09-04] VITALS: Ht 182.9 cm; Wt 126.4 kg
--- NOTE | ~2018-09-04 | HP ---
PATIENT: DONI GAR MEDICAL RECORD: [id number] ACCOUNT: [id number] LOCATION:[facility] : 62 ADMISSION DATE: 09/04/18 PCP: HISTORY AND PHYSICAL EXAMINATION DONI Rogel (58yo, M) ID# [id number]. Date/Time08/05/2018 10:92BCXYR1960Service Dept.NPP_[facility] ClinicProviderOPAL TOBAR MDInsuranceMed Primary: [place] Insurance # : [id number] PCP : A [place] [facility]. Referring Provider Name : TOMAS COULTER APN Employer Name : DISABLED Prescription: [place] [employer] - Member is eligible. Chief Complaint Followup: Bulla of lung s/p heart cath by Dr Willett, here for surgery discussion Patient's Care Team Primary Care Provider (): [employer] [address] [place] [address], , Referring Provider (): TOMAS COULTER APN: [address] [place] [address], , Primary Care Provider: FANG COULTER BODY ENGINEER: [address] [place] [address], , Municipal Clerk: RANJEET HACKETT MD: [address] [address], , Patient's Pharmacies [facility]): [address] [facility] [place] [address], , Vitals BP:148/90 sitting L arm 08/05/2018 11:06 amBP Cuff Size:adult 08/05/2018 11:06 amHR:72,reg 08/05/2018 11:06 amHt:6 ft 08/05/2018 11:03 amWt:267 lbs 08/05/2018 11:06 amNotes:no new complaints, ready to schedule his procedure. SOB prevents much activity.08/05/2018 11:07 amBMI:36.2 08/05/2018 11:06 amAllergies Reviewed Allergies NKDAMedications Reviewed Medications bisacodyl 5 mg tablet,delayed release USE INSTRUCTED BY DLJPZA16/25/18 filledsurescriptscarvedilol 25 mg tablet TK 1 T PO BID WITH MEALS01/27/18 filledMagellan Medicaid AdministrationcloNIDine HCl 0.1 mg zxewhv24/02/18 filledMagellan Medicaid AdministrationCombivent Respimat 20 mcg-100 mcg/actuation solution for inhalation Inhale 1 puff(s) 4 times a day by inhalation route.06/26/18 filledMagellan Medicaid Administrationfamotidine 40 mg /03/18 filledMagell[place] Medicaid Administrationfurosemide 40 mg jzdbyd31/19/18 filledMag[place] Medicaid AdministrationGavilyte-C 240 gram-22.72 gram-6.72 gram-5.84 gram oral solution USE INSTRUCTED BY SBHGIA90/25/18 filledsurescriptsirbesartan 300 mg /03/18 filledMag[place] Medicaid Administrationlisinopril 20 mg ypdhkw64/07/18 filled[place] Medicaid Administrationlisinopril 40 mg /10/18 filled[place] Medicaid AdministrationmetFORMIN 500 mg iaekdc40/03/18 filledMag[place] Medicaid Administrationpantoprazole 40 mg tablet,delayed release TK 1 T PO BID B MEALS06/19/18 filled[place] Medicaid AdministrationProAir HFA 90 mcg/actuation aerosol inhaler Inhale 2 puff(s) every 4 hours by inhalation route as needed.06/26/18 filledMagellan Medicaid Administrationsucralfate 1 gram tablet HISTORY AND PHYSICAL [id number] DONI GAR Take 1 tablet(s) 4 times a day by oral route.03/26/18 enteredCharity McAllisterSymbicort 160 mcg-4.5 mcg/actuation HFA aerosol inhaler INHALE 2 PUFFS TWICE A DAY05/28/18 filledMagellan Medicaid AdministrationProblems Reviewed Problems Bulla of lung - Onset: 06/17/2018 - right upper Angina pectoris Diabetes mellitus Family History Reviewed Family History Father- Chronic obstructive lung diseaseMother- Heart diseaseMaternal Grandmother- Heart diseaseSocial History Reviewed Social History Cardiology Smoking Status: Former smoker Smoker (1 PPD) High Cholesterol: Y High blood pressure: Y Exercise level: None Diabetes: Y Tobacco-years of use: 36 Surgical History Reviewed Surgical History Past Medical History Reviewed Past Medical History COPD: Y Chest Pain: Y Depression: Y Diabetes: Y Heart Disease: Y High Blood Pressure: Y Hypertension: Y Shortness of Breath: Y - 'W/EXERTION, LYING FLAT" Documents for Discussion N/A Screening None recorded. HPI Dyspnea Reported by patient. Quality: dyspnea; can't catch breath Severity: severe Context: with activity; history of lung disease; walking on level ground; walking up inclines; walking up strairs Alleviating Factors: relieved with inhaler Aggravating Factors: activity Associated Symptoms: no chest pain; no palpitations; no orthopnea; no PND; no fever; no chills; no sputum production; no weight gain; no dyspepsia heart cath negative, reviewed with cardiology dyspnea with exertion and sometimes at rest Large bulla ROS ROS as noted in the HPI HISTORY AND PHYSICAL [id number] DONI GAR Physical Exam Patient is a 58-year-old male. Constitutional: General Appearance: healthy-appearing, well-nourished, and well-developed. Psychiatric: Orientation: to time, place, and person. Skin: Inspection and palpation: no rash, lesions, or induration. Eyes: Pupils: PERRLA. EOM: EOMI. ENMT: Lips, Teeth, and Gums: normal dentition. Neck: Neck: supple and FROM. Lungs: Auscultation: no wheezing, rales/crackles, or rhonchi and breath sounds normal. Cardiovascular: Heart Auscultation: no murmurs, rubs, or gallops and RRR. Neck vessels: no carotid bruits. Pulses including femoral / pedal: normal throughout. Abdomen: Bowel Sounds: normal. Inspection and Palpation: no masses or tenderness (no guarding, no rebound) and soft and non-distended. Liver: non-tender and no hepatomegaly. Spleen: non-tender and no splenomegaly. Back: Thoracolumbar Appearance: normal curvature. Musculoskeletal:: Joints, Bones, and Muscles: no malalignment or tenderness and normal movement of all extremities. Extremities: no cyanosis, edema, or varicosities. Neurologic: Gait and Station: normal gait and station. Cranial Nerves: grossly intact. Sensation: grossly intact. Assessment / Plan 1. Bulla of lung J43.9: Emphysema, unspecified Discussion Notes discussed rationale for surgery, alternatives, benefits, and risks. He wishes to proceed with resection of large bulla. OPAL TOBAR MD at 0753 CC: [id number] DICTATION DATE: 08/05/18 1040 SHIFT PRODUCTION ASSOCIATE: ELI 08/31/18 1617 PRE IN [facility] [address] [place] [id number]
--- NOTE | ~2018-09-04 | OP ---
PATIENT NAME: DONI GAR MEDICAL RECORD: [id number] :62 LOCATION:.[facility] D.CV05 ADMISSION DATE:09/04/18 SURGEON: DANIEL TOBAR MD DATE OF OPERATION: 09/04/2018 SURGEON: aDniel Tobar MD JACK TAMP OPERATOR: ALBERT Messer MD and JOSE ALEJANDRO Marshall OPERATION PERFORMED: 1. Right upper lobe lobectomy. 2. Bronchoscopy. ANESTHESIA: General endotracheal anesthesia, double lumen. PREOPERATIVE DIAGNOSIS: Giant right upper lobe bulla. POSTOPERATIVE DIAGNOSIS: Giant right upper lobe bulla. SPECIMENS: Right upper lobe. BLOOD LOSS: 50 cc. COMPLICATIONS: None. CONDITION: Stable. DISPOSITION: ICU. OPERATIVE FINDINGS: 1. The entire right upper lobe replaced with bullous emphysema, nearly complete major fissure, but incomplete minor fissure. There was some bullous emphysema of the middle and superior segment of the lower lobe, which after reexpansion appeared to fill the space. 2. Bronchus airtight under water with positive pressure. OPERATIVE INDICATION: Giant right upper lobe bulla with compressive atelectasis lower and middle lobe. PROCEDURE IN DETAIL: The patient was brought to the operating suite. Double lumen general endotracheal anesthesia was placed. The patient was turned in left lateral decubitus position with appropriate padding. Chest was sterilely prepped and draped. Posterolateral thoracotomy incision was made. Subcutaneous tissue was divided. A trapdoor type opening in the 6th rib posteriorly was made. Pleural cavity was entered. The endotracheal tube was repositioned. Apical adhesions were taken down with electrocautery and direct visualization using a mirror. The hilum was freed. The pulmonary artery was dissected out in the fissure and branches of the upper lobe were divided between ligatures and suture ligatures. In the superior hilum, branches to the upper lobe were divided between reinier. The middle lobe vein was preserved and 2 large veins from the upper lobe were stapled separately. The bronchus was dissected out, briefly clamped, lower and middle lobe inflated, then the upper lobe bronchus was stapled and divided. Thorough irrigation was undertaken. The bronchus was airtight under water. Hemostasis was ensured. There was no torsion of the middle lobe. Drains were placed apically and posteriorly and then the chest was OPERATIVE REPORT [id number] DONI GAR closed with pericostal sutures, Vicryl in 2 layers on the muscle, fascia, subcutaneous and the skin clips. The patient was returned to supine position in good condition to CV ICU. TRANSINT:[id number] Voice Confirmation ID: [id number] DOCUMENT ID: [id number] DANIEL TOBAR MD at 1316 CC: RANJEET HACKETT MD [id number] DICTATION DATE: 09/04/18 1137 SECURITY SUPERVISOR: 09/04/18 1149 ADM IN [address] [address] [place] [address]
--- NOTE | ~2018-09-04 | MORECARE ---
CASE MANAGEMENT DISCHARGE SUMMARY PATIENT: DONI GAR UNIT: [id number] ADM DATE: 09/04/18 AGE: 58 : 62 SEX: M ROOM/BED: D.[facility] AUTHOR: GILBERTO,DOC PHYSICIAN: REFERRING PHYSICIAN: DO PIMENETL MD DATE OF SERVICE: 09/15/18 Discharge Plan Patient Name: DONI GAR Facility: [facility]:[place] : 1960 Planned Disposition: Home Anticipated Discharge Date: Discharge Date: 09/15/2018 Expected LOS: Initial Reviewer: [email or web address] Initial Review Date: 09/04/2018 Generated: 09/15/18 2:04 pm Comments DCP- Discharge Planning Updated by [email or web address]: Kavita Barbour on 09/09/18 4:[address] Patient Name: DONI GAR Admission Status: Elective Accout number: [id number] Admission Date: 09-04-2018 : 1960 Admission Diagnosis:EMPHYSEMA, UNSPECIFIED Attending: DO PIMENTEL Current LOS: 5 Anticipated DC Date: Planned Disposition: Home Primary Insurance: MEDICAID [place] Discharge Planning Comments: CM met with patient and ex- at bedside after obtaining verbal consent. Patient states he plans on returning home after discharge with his family. Patient states he will have family transport him home via private vehicle. Patient will need updraft medications upon discharge. Patient denies any other discharge needs at this time. CM will continue to follow and assist as needed for discharge planning / needs. Waterside Worker: Kavita Barbour DCPIA - Discharge Planning Initial Assessment Updated by [email or web address]: Kavita Barbour on 09/09/18 5:04 pm * Is the patient Alert and Oriented? Yes * How many steps to enter\exit or inside your home? * PCP [facility] * Pharmacy [place] * Preadmission Environment Home with Family * ADLs Independent * Other Equipment HOME 02, NEBULIZER, CPAP [place] Home Patient [phone] * List name and contact numbers for known caregivers / representatives who currently or will assist patient after discharge: TAMARA GAR [phone] * Verbal permission to speak to the caregivers and representatives has been obtained from the patient. Yes * Community resources currently utilized None * Additional services required to return to the preadmission environment? No * Can the patient safely return to the preadmission environment? Yes * Has this patient been hospitalized within the prior 30 days at any hospital? No Last DP export: 09/09/18 4:08 Patient Name: DONI GAR Page 01805 at 1304 All edits/amendments must be made on the electronic document DICTATION DATE: 09/15/18 1303 FULL TIME STAFF INTERPRETER: ELI 09/15/18 1303 RPT#: [id number] DC DATE:09/15/18 STATUS: DIS IN [facility] [address] [place] [address] END OF REPORT
--- NOTE | ~2018-09-04 | MORECARE ---
CASE MANAGEMENT DISCHARGE SUMMARY PATIENT: DONI GAR UNIT: [id number] ADM DATE: 09/04/18 AGE: 58 : 62 SEX: M ROOM/BED: D[facility] AUTHOR: GILBERTO,DOC PHYSICIAN: REFERRING PHYSICIAN: DO PIMENTEL MD DATE OF SERVICE: 09/09/18 Discharge Plan Patient Name: DONI GAR Facility: [facility]:[place] : 1960 Planned Disposition: Home Anticipated Discharge Date: Discharge Date: Expected LOS: Initial Reviewer: [email or web address] Initial Review Date: 09/04/2018 Generated: 09/09/18 6:08 pm Comments DCP- Discharge Planning Updated by [email or web address]: Kavita Barbour on 09/09/18 4:[address] Patient Name: DONI GAR Admission Status: Elective Accout number: [id number] Admission Date: 09-04-2018 : 1960 Admission Diagnosis:EMPHYSEMA, UNSPECIFIED Attending: DO PIMENTEL Current LOS: 5 Anticipated DC Date: Planned Disposition: Home Primary Insurance: MEDICAID [place] Discharge Planning Comments: CM met with patient and ex- at bedside after obtaining verbal consent. Patient states he plans on returning home after discharge with his family. Patient states he will have family transport him home via private vehicle. Patient will need updraft medications upon discharge. Patient denies any other discharge needs at this time. CM will continue to follow and assist as needed for discharge planning / needs. Polysomnography Tech: Kavita Barbour DCPIA - Discharge Planning Initial Assessment Updated by [email or web address]: Kavita Barbour on 09/09/18 5:04 pm * Is the patient Alert and Oriented? Yes * How many steps to enter\exit or inside your home? * PCP [facility] * Pharmacy [place] * Preadmission Environment Home with Family * ADLs Independent * Other Equipment HOME 02, NEBULIZER, CPAP [place] Home Patient [phone] * List name and contact numbers for known caregivers / representatives who currently or will assist patient after discharge: TAMARA GAR [phone] * Verbal permission to speak to the caregivers and representatives has been obtained from the patient. Yes * Community resources currently utilized None * Additional services required to return to the preadmission environment? No * Can the patient safely return to the preadmission environment? Yes * Has this patient been hospitalized within the prior 30 days at any hospital? No Patient Name: DONI GAR Page [phone] at 1709 All edits/amendments must be made on the electronic document DICTATION DATE: 09/09/181707 SHELTER MONITOR: ELI 09/09/181707 RPT#: [id number] DC DATE: STATUS: ADM IN [facility] [address] [place] [address] END OF REPORT
--- NOTE | ~2018-09-04 | CN ---
PATIENT NAME:DONI GAR MEDICAL RECORD: [id number] : 62 LOCATION:[facility]CV05 ADMIT DATE: 09/04/18 ACCOUNT: [id number] CONSULTING PHYSICIAN: RANJEET HACKETT MD REFERRING PHYSICIAN: DO PIMENTEL MD DATE OF CONSULTATION: 09/04/2018 CONSULT REQUESTING PHYSICIAN: Daniel Griffin MD REASON FOR CONSULTATION: COPD, post-bullectomy, right upper lobe. HISTORY OF PRESENT ILLNESS: Mr. Gar is a 58-year-old gentleman who has a history of severe bullous lesion of the right upper lobe. The patient underwent bullectomy today by Dr. Griffin. Now, he is awake and alert, doing well. He denies any significant shortness of breath. No fever and chills. He does have some chest pain at operation site. REVIEW OF SYSTEMS: As in history of present illness. PAST MEDICAL HISTORY: 1. Severe bullous emphysema in the right upper lobe. 2. Chronic obstructive pulmonary disease. 3. Congestive heart failure. 4. Hypertension. 5. Type 2 diabetes mellitus. 6. Obesity. ALLERGIES: There are no known drug allergies. MEDICATIONS: He is on Advair inhaler, albuterol inhaler, Rocephin. His all medications are reviewed. PERSONAL AND SOCIAL HISTORY: The patient is an ex-smoker. He is a nondrinker. FAMILY HISTORY: Noncontributory. PHYSICAL EXAMINATION: GENERAL: Now, the patient is lying comfortably, but he is not in acute distress. VITAL SIGNS: The blood pressure is 101/68, pulse is 87, respirations 17, temperature is 99 and SpO2 is 96% on 4 liters nasal cannula. HEENT: Conjunctivae are pink. Sclerae are not icteric. NECK: Supple, no JVD. CHEST: Chest excursion is minimal on both sides. There is no wheeze, no rales. HEART: Rhythm regular, normal sound, no murmur. ABDOMEN: Soft, bowel sounds present. No hepatosplenomegaly. RECTAL: Deferred. EXTREMITIES: No cyanosis, no clubbing, no pedal edema. SKIN: There is incision. CENTRAL NERVOUS SYSTEM: The patient is awake and alert. There is no obvious cranial nerve abnormality. CHEST RADIOGRAPH: Acute postoperative changes. No consolidation. LABORATORY DATA: CBC: WBC is 7.9, hemoglobin 14.6, hematocrit 44, the platelet CONSULT REPORT [id number] DONI GAR count 285. IMPRESSION: 1. Acute hypoxic hypercapnic respiratory failure, post procedure. 2. Right upper lobe lobectomy for a large bulla. 3. Chronic obstructive pulmonary disease without exacerbation. 4. Bulla right upper lobe. 5. History of congestive heart failure. 6. History of diabetes mellitus. 7. Obesity. RECOMMENDATION: 1. Discontinue Advair inhaler, albuterol nebulizer p.r.n., albuterol, ipratropium nebulizer q.6 hourly. 2. Start Brovana, budesonide nebulizer b.i.d. 3. Deep venous thrombosis prophylaxis. 4. Follow up labs and chest radiograph. Thank you for involving me in the care of Mr. Gar. TRANSINT:[id number] Voice Confirmation ID: [id number] DOCUMENT ID: [id number] RANJEET HACKETT MD at 1234 CC: [id number] DICTATION DATE: 09/04/181752 REPORT PROGRAMMER: 09/05/18 0043 DIS IN 09/15/18 [facility] [address] [place] [address]
[~2018-09-04 05:00] MED LIST changes: -ASPIRIN EC81 M1 PO; -CARDIZEM CD120 MG PO; -CHRONULAC30 ML PO; -ELIQUIS2.5 MG PO; -MUCINEX DM ER1 EAC1 PO; -PERCOCET 5-3251 TAB PO; -SINGULAIR10 MG PO; -fentanyl TRANSDERM
[2018-09-05] VITALS (25 sets, daily range): BP systolic 109–153; BP diastolic 60–85; Ht 182.9 cm; Wt 126.4 kg
[2018-09-05 05:51] LABS: HEMATOCRIT 40.4 % (42.0-54.0); MCH 29.2 pg (26.0-34.0); MCHC 32.2 g/dL (31.0-37.0); MCV 90.8 fL (80.0-100.0); MEAN PLATELET VOLUME 10.5 fL (7.4-10.4); RBC 4.45 10x6/uL (4.20-6.10)
[2018-09-05 05:56] LABS: WBC 12.4 10x3/uL (4.8-10.8)
[2018-09-05 06:09] LABS: ALBUMIN 2.9 g/dL (3.4-5.0); ALKALINE PHOSPHATASE 55 U/L (46-116); ALT (SGPT) 47 U/L (10-68); BILIRUBIN - TOTAL 0.75 mg/dL (0.2-1.3); CALC OSMOLALITY 276 mosm/kg (275-300); CALCIUM 7.7 mg/dL (8.5-10.1); CARBON DIOXIDE 29.9 mmol/L (21.0-32.0); CHLORIDE - SERUM 101 mmol/L (98-107); GLUCOSE 135 mg/dL (74-106); POTASSIUM - SERUM 4.5 mmol/L (3.5-5.1); PROTEIN - SERUM 6.8 g/dL (6.4-8.2); SODIUM 137 mmol/L (136-145); UREA NITROGEN 16 mg/dL (7-18); eGFR NON AFRICAN AMERICAN 82 mL/min (90-120)
[2018-09-06] VITALS (24 sets, daily range): BP systolic 112–147; BP diastolic 59–79
[2018-09-06 05:58] LABS: HEMATOCRIT 37.9 % (42.0-54.0); HEMOGLOBIN 12.1 g/dL (13.5-17.5); MCH 29.4 pg (26.0-34.0); MCHC 31.9 g/dL (31.0-37.0); MEAN PLATELET VOLUME 10.9 fL (7.4-10.4); RBC 4.12 10x6/uL (4.20-6.10); RDW 15.1 % (11.5-14.5)
[2018-09-06 06:53] LABS: ALBUMIN 2.5 g/dL (3.4-5.0); ALKALINE PHOSPHATASE 48 U/L (46-116); BILIRUBIN - TOTAL 0.62 mg/dL (0.2-1.3); CALCIUM 7.5 mg/dL (8.5-10.1); CARBON DIOXIDE 31.1 mmol/L (21.0-32.0); CHLORIDE - SERUM 100 mmol/L (98-107); GLUCOSE 134 mg/dL (74-106); POTASSIUM - SERUM 4.5 mmol/L (3.5-5.1); PROTEIN - SERUM 5.7 g/dL (6.4-8.2); SODIUM 138 mmol/L (136-145)
[2018-09-06 06:54] LABS: ALT (SGPT) 34 U/L (10-68); CALC OSMOLALITY 276 mosm/kg (275-300); CREATININE - SERUM 0.7 mg/dL (0.6-1.3); UREA NITROGEN 11 mg/dL (7-18); eGFR NON AFRICAN AMERICAN > 90 mL/min (90-120)
[2018-09-07] VITALS (24 sets, daily range): BP systolic 109–137; BP diastolic 60–92
[2018-09-07 06:31] LABS: HEMATOCRIT 35.8 % (42.0-54.0); HEMOGLOBIN 11.4 g/dL (13.5-17.5); MCH 29.4 pg (26.0-34.0); MCHC 31.8 g/dL (31.0-37.0); MCV 92.3 fL (80.0-100.0); MEAN PLATELET VOLUME 10.4 fL (7.4-10.4); RBC 3.88 10x6/uL (4.20-6.10); WBC 10.8 10x3/uL (4.8-10.8)
[2018-09-07 06:46] LABS: ALBUMIN 2.4 g/dL (3.4-5.0); ALKALINE PHOSPHATASE 52 U/L (46-116); ALT (SGPT) 31 U/L (10-68); CALCIUM 7.8 mg/dL (8.5-10.1); CARBON DIOXIDE 33.6 mmol/L (21.0-32.0); CHLORIDE - SERUM 101 mmol/L (98-107); GLUCOSE 115 mg/dL (74-106); POTASSIUM - SERUM 4.2 mmol/L (3.5-5.1); PROTEIN - SERUM 6.3 g/dL (6.4-8.2); SODIUM 139 mmol/L (136-145)
[2018-09-07 06:48] LABS: CALC OSMOLALITY 279 mosm/kg (275-300); CREATININE - SERUM 0.9 mg/dL (0.6-1.3); UREA NITROGEN 14 mg/dL (7-18); eGFR NON AFRICAN AMERICAN > 90 mL/min (90-120)
[2018-09-08] VITALS (24 sets, daily range): BP systolic 98–139; BP diastolic 65–89
[2018-09-08 06:41] LABS: BASOPHILS 0.2 % (0-2); EOSINOPHILS 2.8 % (0-7); HEMATOCRIT 35.4 % (42.0-54.0); HEMOGLOBIN 11.2 g/dL (13.5-17.5); IMMATURE GRANULOCYTES 0.8 % (0-5); MCH 29.1 pg (26.0-34.0); MCHC 31.6 g/dL (31.0-37.0); MCV 91.9 fL (80.0-100.0); MEAN PLATELET VOLUME 10.5 fL (7.4-10.4); MONOCYTES 14.2 % (2-11); RBC 3.85 10x6/uL (4.20-6.10); WBC 9.5 10x3/uL (4.8-10.8)
[2018-09-08 06:43] LABS: CALC OSMOLALITY 275 mosm/kg (275-300); CALCIUM 7.9 mg/dL (8.5-10.1); CARBON DIOXIDE 34.5 mmol/L (21.0-32.0); CHLORIDE - SERUM 97 mmol/L (98-107); CREATININE - SERUM 0.9 mg/dL (0.6-1.3); GLUCOSE 111 mg/dL (74-106); PLATELET COUNT 119 10x3/uL (130-400); POTASSIUM - SERUM 3.7 mmol/L (3.5-5.1); SODIUM 137 mmol/L (136-145); UREA NITROGEN 15 mg/dL (7-18); eGFR NON AFRICAN AMERICAN > 90 mL/min (90-120)
[2018-09-09] VITALS (26 sets, daily range): BP systolic 92–152; BP diastolic 65–92
[2018-09-09 07:14] LABS: CALC OSMOLALITY 273 mosm/kg (275-300); CALCIUM 8.2 mg/dL (8.5-10.1); CARBON DIOXIDE 36.8 mmol/L (21.0-32.0); CHLORIDE - SERUM 96 mmol/L (98-107); CREATININE - SERUM 0.9 mg/dL (0.6-1.3); GLUCOSE 128 mg/dL (74-106); MAGNESIUM - SERUM 1.9 mg/dL (1.8-2.4); PHOSPHOROUS 3.1 mg/dL (2.5-4.9); POTASSIUM - SERUM 3.3 mmol/L (3.5-5.1); SODIUM 136 mmol/L (136-145); UREA NITROGEN 13 mg/dL (7-18); eGFR NON AFRICAN AMERICAN > 90 mL/min (90-120)
[2018-09-09 07:55] LABS: BASOPHILS 0.2 % (0-2); EOSINOPHILS 3.3 % (0-7); HEMATOCRIT 31.8 % (42.0-54.0); HEMOGLOBIN 10.2 g/dL (13.5-17.5); IMMATURE GRANULOCYTES 0.8 % (0-5); LYMPHOCYTES 10.3 % (15-50); MCH 29.1 pg (26.0-34.0); MCHC 32.1 g/dL (31.0-37.0); MCV 90.6 fL (80.0-100.0); MEAN PLATELET VOLUME 11.2 fL (7.4-10.4); MONOCYTES 13.8 % (2-11); NEUTROPHILS 71.6 % (40-80); RBC 3.51 10x6/uL (4.20-6.10); RDW 14.7 % (11.5-14.5); WBC 9.1 10x3/uL (4.8-10.8)
[2018-09-09 07:56] LABS: PLATELET COUNT 88 10x3/uL (130-400)
[2018-09-09 08:21] LABS: PLATELET ESTIMATE DECREASED
[2018-09-10] VITALS (41 sets, daily range): BP systolic 76–136; BP diastolic 38–83
[2018-09-10 04:45] LABS: BASOPHILS 0.3 % (0-2); EOSINOPHILS 2.9 % (0-7); HEMATOCRIT 34.2 % (42.0-54.0); HEMOGLOBIN 10.9 g/dL (13.5-17.5); IMMATURE GRANULOCYTES 1.6 % (0-5); LYMPHOCYTES 12.2 % (15-50); MCH 29.1 pg (26.0-34.0); MCHC 31.9 g/dL (31.0-37.0); MCV 91.2 fL (80.0-100.0); MEAN PLATELET VOLUME 10.4 fL (7.4-10.4); MONOCYTES 11.9 % (2-11); NEUTROPHILS 71.1 % (40-80); RBC 3.75 10x6/uL (4.20-6.10); RDW 14.9 % (11.5-14.5)
[2018-09-10 04:53] LABS: PLATELET COUNT 253 10x3/uL (130-400)
[2018-09-10 05:14] LABS: CALC OSMOLALITY 277 mosm/kg (275-300); CALCIUM 8.3 mg/dL (8.5-10.1); CHLORIDE - SERUM 96 mmol/L (98-107); GLUCOSE 133 mg/dL (74-106); POTASSIUM - SERUM 3.7 mmol/L (3.5-5.1); SODIUM 138 mmol/L (136-145); UREA NITROGEN 13 mg/dL (7-18); eGFR NON AFRICAN AMERICAN 82 mL/min (90-120)
[2018-09-10 05:34] LABS: CARBON DIOXIDE 40.1 mmol/L (21.0-32.0)
[2018-09-10] MEDS ORDERED: ASPIRIN EC81 M1 PO (14:04)
[2018-09-10] MEDS ORDERED: fentanyl TRANSDERM (14:09)
[2018-09-10] MEDS ORDERED: PERCOCET 5-3251 TAB PO (14:17)
[2018-09-11] VITALS (20 sets, daily range): BP systolic 85–136; BP diastolic 62–85
[2018-09-11 04:18] LABS: BASOPHILS 0.3 % (0-2); EOSINOPHILS 2.1 % (0-7); HEMATOCRIT 32.7 % (42.0-54.0); HEMOGLOBIN 10.7 g/dL (13.5-17.5); IMMATURE GRANULOCYTES 2.5 % (0-5); LYMPHOCYTES 14.5 % (15-50); MCH 29.4 pg (26.0-34.0); MCHC 32.7 g/dL (31.0-37.0); MCV 89.8 fL (80.0-100.0); MEAN PLATELET VOLUME 10.1 fL (7.4-10.4); MONOCYTES 12.2 % (2-11); NEUTROPHILS 68.4 % (40-80); PLATELET COUNT 271 10x3/uL (130-400); RBC 3.64 10x6/uL (4.20-6.10); RDW 15.1 % (11.5-14.5); WBC 13.3 10x3/uL (4.8-10.8)
[2018-09-11 04:34] LABS: CALC OSMOLALITY 282 mosm/kg (275-300); CALCIUM 8.2 mg/dL (8.5-10.1); CARBON DIOXIDE 39.5 mmol/L (21.0-32.0); CHLORIDE - SERUM 99 mmol/L (98-107); GLUCOSE 125 mg/dL (74-106); POTASSIUM - SERUM 3.5 mmol/L (3.5-5.1); SODIUM 141 mmol/L (136-145); UREA NITROGEN 16 mg/dL (7-18); eGFR NON AFRICAN AMERICAN 82 mL/min (90-120)
[2018-09-11] MEDS ORDERED: SINGULAIR10 MG PO (09:39)
[2018-09-11] MEDS ORDERED: MUCINEX DM ER1 EAC1 PO (09:43)
[2018-09-11] MEDS ORDERED: LEVAQUIN750 MG PO (09:48)
[2018-09-11 20:14] LABS: MAGNESIUM - SERUM 2.1 mg/dL (1.8-2.4); POTASSIUM - SERUM 3.5 mmol/L (3.5-5.1)
[2018-09-12] VITALS (24 sets, daily range): BP systolic 89–152; BP diastolic 59–92
[2018-09-12 05:37] LABS: BASOPHILS 0.3 % (0-2); EOSINOPHILS 1.8 % (0-7); HEMATOCRIT 35.4 % (42.0-54.0); HEMOGLOBIN 11.6 g/dL (13.5-17.5); IMMATURE GRANULOCYTES 2.9 % (0-5); LYMPHOCYTES 12.1 % (15-50); MCH 29.4 pg (26.0-34.0); MCHC 32.8 g/dL (31.0-37.0); MCV 89.6 fL (80.0-100.0); MEAN PLATELET VOLUME 10.1 fL (7.4-10.4); MONOCYTES 12.5 % (2-11); NEUTROPHILS 70.4 % (40-80); RBC 3.95 10x6/uL (4.20-6.10); WBC 15.7 10x3/uL (4.8-10.8)
[2018-09-12 05:44] LABS: PLATELET COUNT 351 10x3/uL (130-400)
[2018-09-12 06:18] LABS: CALC OSMOLALITY 271 mosm/kg (275-300); CALCIUM 8.6 mg/dL (8.5-10.1); CARBON DIOXIDE 33.5 mmol/L (21.0-32.0); CHLORIDE - SERUM 95 mmol/L (98-107); GLUCOSE 140 mg/dL (74-106); SODIUM 134 mmol/L (136-145); UREA NITROGEN 18 mg/dL (7-18); eGFR NON AFRICAN AMERICAN 82 mL/min (90-120)
[2018-09-13] VITALS (24 sets, daily range): BP systolic 94–124; BP diastolic 62–87
[2018-09-13 08:32] LABS: BASOPHILS 0.3 % (0-2); EOSINOPHILS 1.9 % (0-7); HEMATOCRIT 37.5 % (42.0-54.0); HEMOGLOBIN 12.2 g/dL (13.5-17.5); IMMATURE GRANULOCYTES 1.6 % (0-5); MCH 29.5 pg (26.0-34.0); MCHC 32.5 g/dL (31.0-37.0); MCV 90.6 fL (80.0-100.0); MEAN PLATELET VOLUME 9.9 fL (7.4-10.4); MONOCYTES 8.2 % (2-11); PLATELET COUNT 389 10x3/uL (130-400); RBC 4.14 10x6/uL (4.20-6.10); RDW 14.9 % (11.5-14.5); WBC 14.7 10x3/uL (4.8-10.8)
[2018-09-13 09:07] LABS: ANION GAP 9.7 mmol/L (8-16); CALCIUM 8.8 mg/dL (8.5-10.1); CARBON DIOXIDE 33.5 mmol/L (21.0-32.0); CREATININE - SERUM 1.1 mg/dL (0.6-1.3); MAGNESIUM - SERUM 2.1 mg/dL (1.8-2.4); PHOSPHOROUS 3.2 mg/dL (2.5-4.9); POTASSIUM - SERUM 4.2 mmol/L (3.5-5.1)
[2018-09-14] VITALS (17 sets, daily range): BP systolic 98–121; BP diastolic 63–87
[2018-09-14 03:41] LABS: BASOPHILS 0.2 % (0-2); EOSINOPHILS 2.6 % (0-7); HEMATOCRIT 32.3 % (42.0-54.0); HEMOGLOBIN 10.9 g/dL (13.5-17.5); IMMATURE GRANULOCYTES 1.6 % (0-5); LYMPHOCYTES 13.8 % (15-50); MCH 30.5 pg (26.0-34.0); MCHC 33.7 g/dL (31.0-37.0); MCV 90.5 fL (80.0-100.0); MEAN PLATELET VOLUME 9.8 fL (7.4-10.4); MONOCYTES 11.9 % (2-11); NEUTROPHILS 69.9 % (40-80); PLATELET COUNT 350 10x3/uL (130-400); RBC 3.57 10x6/uL (4.20-6.10); RDW 14.8 % (11.5-14.5); WBC 12.3 10x3/uL (4.8-10.8)
[2018-09-14 03:52] LABS: ANION GAP 6.4 mmol/L (8-16); CALCIUM 8.4 mg/dL (8.5-10.1); CARBON DIOXIDE 35.8 mmol/L (21.0-32.0); CREATININE - SERUM 1.1 mg/dL (0.6-1.3); MAGNESIUM - SERUM 2.1 mg/dL (1.8-2.4); PHOSPHOROUS 3.8 mg/dL (2.5-4.9); POTASSIUM - SERUM 4.2 mmol/L (3.5-5.1)
[2018-09-15] VITALS (11 sets, daily range): BP systolic 108–127; BP diastolic 68–89
[2018-09-15] MEDS ORDERED: ELIQUIS2.5 MG PO (10:21)
== END 2018-09-15 11:18 | disposition home or self-care (01) | DRG 163 ==
LOC: D.SDCHOLD 05:00 → D.CVICU 05:00 → D.SDCHOLD 07:30 → D.CVICU 11:34
PROVIDERS: Internal Medicine Pulmonary Disease; Thoracic Surgery (Cardiothoracic Vascular Surgery)
PROC: 0BTC0ZZ Resection of Right Upper Lung Lobe, Open Approach (ICD-10-PCS; principal; 2018-09-04 07:30)
DX: J43.9 Emphysema, unspecified (principal); J96.01 Acute respiratory failure with hypoxia; J96.02 Acute respiratory failure with hypercapnia; J98.11 Atelectasis; J95.812 Postprocedural air leak; E11.65 Type 2 diabetes mellitus with hyperglycemia; R53.81 Other malaise; D64.9 Anemia, unspecified; E66.9 Obesity, unspecified; G47.33 Obstructive sleep apnea (adult) (pediatric); I11.0 Hypertensive heart disease with heart failure; I50.9 Heart failure, unspecified; I48.91 Unspecified atrial fibrillation; Z68.37 Body mass index [BMI] 37.0-37.9, adult; I95.9 Hypotension, unspecified

== ENCOUNTER 2018-09-16 10:57 | Inpatient (IN) | payer MEDICAID ==
[2018-09-16] VITALS (14 sets, daily range): BP systolic 106–144; BP diastolic 68–98; BMI 37.4
[~2018-09-16] VITALS: Ht 182.9 cm; Wt 118.2 kg
--- NOTE | ~2018-09-16 | HEMODYNAMI ---
PATIENT:DONI GAR MEDICAL RECORD: [id number] : 62 LOCATION:[facility] D230 ADMISSION DATE: 09/16/18 Generatedon:09/18/201817:09 Patient name: DONI GAR Patient #: [id number] SSN: : 1960 Date of study: 09/18/2018 Page: Of Hemodynamic Procedure Report Patient Data Patient Demographics First Name: DONI Gender: Male Last Name: CONG : 1960 [facility] Initial: ZHANE Age: 58 year(s) Patient #: [id number] Race: Additional ID: [id number] Contact details Address: [address] [place] [address] ROAD State: [place] City: [facility] Zip code: [address] Past Medical History Allergies: No known allergies Admission Admission Data Admission Date: 09/16/2018 Admission Time: 14:55 Room #: 2302 Height (in.): 72 BSA: 2.39 (m2) Height (cm.): 182.88 BMI: 35.53 (kg/m2) Weight (lbs.): 262 Weight (kg.): 118.84 Procedure Procedure Types Cath Procedure Peripheral Cath Diagnostic Procedure Perishable Freight Inspector Peripheral Procedures Procedure Description Procedure Date Procedure Date: 09/18/2018 Procedure Start Time: 17:00 Procedure Staff Name Function Brendan Fernandez MD Performing Physician Leslye Ashton RT Operator Ground Based [employer] Blanca Castillo RN Nurse Yobani Klein RT Scrub Procedure Data Cath Procedure Fluoroscopy Diagnostic fluoroscopy Total fluoroscopy Time: 0.3 time: 0.3 min min Diagnostic fluoroscopy Total fluoroscopy dose: 4 dose: 4 mGy mGy Hemodynamics Rest BSA: 2.39 (m2) O2 Consumption: Estimated: 325.04 (ml/min) O2 Consumption indexed : Estimated:136 (ml/min/m) Pre Cath Intra NCS Post Cath Procedure Log Time Note 16:36:00 Patient Height : 72 inches 16:36:05 Patient Weight : 262 lbs 16:50:14 Time tracking: Stay late (Procedures after 5:00pm) 16:56:53 Use device set IR Diagnostic 16:56:54 Sterile Angiographic Pack opened to sterile field. 16:56:55 Bag Decanter () opened to sterile field. 16:57:03 PowerPICC 5Fr double lumen catheter opened to sterile field. 16:57:09 SHIELD Sorbaview ([id number]) opened to sterile field. 16:57:16 SUTURE ETHILON 2-0 BLK MONO FS opened to sterile field. 16:57:37 Physician arrived 16:57:38 --------ALL STOP TIME OUT------ 16:57:39 Final Timeout: patient, procedure, and site verified with staff and physician. All members of the team are in agreement. 16:57:54 PICC 16:59:59 Right Arm area was prepped with chlora-prep and draped in sterile fashion 17:00:03 Procedure started. 17:00:03 Full Disclosure recording started 17:00:20 Local anesthetic to right arm with Lidocaine 1% by Brendan Fernandez MD.INITIAL ACCESS ONLY 17:00:22 Venous access obtained using ultrasound guidance. 17:03:03 PICC line was trimmed to 51cm and advanced to the superior vena cava.Position verified under fluoroscopy. 17:07:12 Procedure ended.(Physican Out) 17:07:21 Fluoroscopy time 00.30 minutes. 17:07:24 Fluoroscopy dose: 4 mGy 17:07:24 Flurop Dose total: 4 17:07:29 Procedure and supply charges have been captured, reviewed, submitted and are correct. Device Usage Item Name Manufacture Quantity Catalog Hospital Part Current Minimal Lot# / Number Charge Number Stock Stock Serial# Code Sterile Cardinal 1 [id number] 5 Angiographic Health Pack Bag Decanter Microtek 1 [id number] 5 () [employer] PowerPICC Bard 1 [id number] [id number] 5 5Fr double lumen catheter SHIELD Centurion 1 [id number] 868936 220405 5 Sorbaview ([id number]) SUTURE Ethicon 1 [id number] 5 ETHILON 2-0 BLK MONO FS Signature Audit [place] Stage Time Signature Unsigned Intra-Procedure 09/18/2018 Leslye Ashton 5:09:01 PM RT(R) [facility] [address] [id number]
--- NOTE | ~2018-09-16 | MORECARE ---
CASE MANAGEMENT DISCHARGE SUMMARY PATIENT: DONI GAR UNIT: [id number] ADM DATE: 09/16/18 AGE: 58 : 62 SEX: M ROOM/BED: D.2121 AUTHOR: MICKEY MACIAS PHYSICIAN: REFERRING PHYSICIAN: DARCI BRIONES MD DATE OF SERVICE: 09/20/18 Discharge Plan Patient Name: DONI GAR Facility: [facility]:[place] : 1960 Planned Disposition: Home or Self Care Anticipated Discharge Date: 09/22/18 Discharge Date: Expected LOS: 6 Initial Reviewer: [email or web address] Initial Review Date: 09/20/2018 Generated: 09/20/18 9:45 am Patient Name: DONI GAR Page 91302 at 0845 All edits/amendments must be made on the electronic document DICTATION DATE: 09/20/18 0844 LINOLEUM MECHANIC: ELI 09/20/18 0844 RPT#: [id number] DC DATE: STATUS: ADM IN [facility] [address] [place] [address] END OF REPORT
--- NOTE | ~2018-09-16 | MORECARE ---
CASE MANAGEMENT DISCHARGE SUMMARY PATIENT: DONI GAR UNIT: [id number] ADM DATE: 09/16/18 AGE: 58 : 62 SEX: M ROOM/BED: D.2127 AUTHOR: MICKEY MACIAS PHYSICIAN: REFERRING PHYSICIAN: DARCI BRIONES MD DATE OF SERVICE: 09/20/18 Discharge Plan Patient Name: DONI GAR Facility: [facility]:[place] : 1960 Planned Disposition: Home or Self Care Anticipated Discharge Date: 09/22/18 Discharge Date: Expected LOS: 6 Initial Reviewer: [email or web address] Initial Review Date: 09/20/2018 Generated: 09/20/18 10:04 am Comments DCP- Discharge Planning Updated by [email or web address]: Jesenia Hernandez on 09/20/18 7:[address] Patient Name: DONI GAR Admission Status: ER Accout number: [id number] Admission Date: 09-16-2018 : 1960 Admission Diagnosis:UNSPECIFIED ATRIAL FLUTTER Attending: DARCI BRIONES Current LOS: 4 Anticipated DC Date: 09-22-2018 Planned Disposition: Home or Self Care Primary Insurance: MEDICAID [place] Discharge Planning Comments: CM MET WITH PATIENT AND CAREGIVER (PIERRE GAR) REGARDING D/C NEEDS AND PLANS. PATIENTS CAREGIVER WILL DRIVE HIM HOME AT DISCHARGE. PATIENT HAS 8 STEPS TO ENTER HIS HOME AND NO STAIRS ONCE INSIDE HOME. PATIENT IS INDEPENDENT WITH HIS CARE EXCEPT FOR BATHING AND MEDICATION MANAGEMENT. PATIENT HAS 02, PORTABLE O2, NEBULIZER, WALKER, GLUCOMETER, AND CPAP AT HOME. [employer] PATIENT SUPPLIES PATIENTS OXYGEN. PATIENT SEES [facility] AT [facility] HERE IN [place] AND USES [facility]. PATIENT REFUSED HOME HEALTH AT THIS TIME. CM WILL CONTINUE TO FOLLOW PATIENT WITH D/C NEEDS AND PLANS. PCP [facility] CAREGIVER: PIERRE GAR [phone] Video Arcade Manager: Jesenia Hernandez DCPIA - Discharge Planning Initial Assessment Updated by [email or web address]: Jesenia Hernandez on 09/20/18 8:48 am * Is the patient Alert and Oriented? Yes * How many steps to enter\exit or inside your home? * [facility]CP [facility] ([place]) * Pharmacy [facility] * Preadmission Environment Home with Family * ADLs Partial Dependent * Partial ADLs (Assistance needed) Bathing Medication Management * Equipment CPAP Glucometer Nebulizer Other Oxygen Walker * Other Equipment PORTABLE O2 OXYGEN SUPPLIED BY [place] PATIENT * List name and contact numbers for known caregivers / representatives who currently or will assist patient after discharge: PIERRE GAR (CAREGIVER) [phone] * Verbal permission to speak to the caregivers and representatives has been obtained from the patient. Yes * Community resources currently utilized None * Additional services required to return to the preadmission environment? Yes * Can the patient safely return to the preadmission environment? Yes * Has this patient been hospitalized within the prior 30 days at any hospital? Yes Last DP export: 09/20/18 7:52 a Patient Name: DONI GAR Page 65251 at 0905 All edits/amendments must be made on the electronic document DICTATION DATE: 09/20/18903 NEWS INTERNSHIP: ELI 09/20/18903 RPT#: [id number] DC DATE: STATUS: ADM IN [facility] [address] [place] [address] END OF REPORT
--- NOTE | ~2018-09-16 | MORECARE ---
CASE MANAGEMENT DISCHARGE SUMMARY PATIENT: DONI GAR UNIT: [id number] ADM DATE: 09/16/18 AGE: 58 : 62 SEX: M ROOM/BED: D.2120 AUTHOR: MICKEY MACIAS PHYSICIAN: REFERRING PHYSICIAN: DARCI BRIONES MD DATE OF SERVICE: 09/24/18 Discharge Plan Patient Name: DONI GAR Facility: [facility]:[place] : 1960 Planned Disposition: Home or Self Care Anticipated Discharge Date: 09/23/18 Discharge Date: 09/23/2018 Expected LOS: 7 Initial Reviewer: [email or web address] Initial Review Date: 09/20/2018 Generated: 09/24/18 12:32 pm Comments DCP- Discharge Planning Updated by [email or web address]: Jesenia Hernandez on 09/20/18 7:[address] Patient Name: DONI GAR Admission Status: ER Accout number: [id number] Admission Date: 09-16-2018 : 1960 Admission Diagnosis:UNSPECIFIED ATRIAL FLUTTER Attending: DARCI BRIONES Current LOS: 4 Anticipated DC Date: 09-22-2018 Planned Disposition: Home or Self Care Primary Insurance: MEDICAID [place] Discharge Planning Comments: CM MET WITH PATIENT AND CAREGIVER (PIERRE GAR) REGARDING D/C NEEDS AND PLANS. PATIENTS CAREGIVER WILL DRIVE HIM HOME AT DISCHARGE. PATIENT HAS 8 STEPS TO ENTER HIS HOME AND NO STAIRS ONCE INSIDE HOME. PATIENT IS INDEPENDENT WITH HIS CARE EXCEPT FOR BATHING AND MEDICATION MANAGEMENT. PATIENT HAS 02, PORTABLE O2, NEBULIZER, WALKER, GLUCOMETER, AND CPAP AT HOME. CITIZEN OF [place] [facility] PATIENT SUPPLIES PATIENTS OXYGEN. PATIENT SEES [facility] AT [facility] HERE IN [place] AND USES [facility]. PATIENT REFUSED HOME HEALTH AT THIS TIME. CM WILL CONTINUE TO FOLLOW PATIENT WITH D/C NEEDS AND PLANS. PCP [facility] CAREGIVER: PIERRE GAR [phone] Cupola Tender: Jesenia Hernandez DCPIA - Discharge Planning Initial Assessment Updated by [email or web address]: Jesenia Hernandez on 09/20/18 8:48 am * Is the patient Alert and Oriented? Yes * How many steps to enter\exit or inside your home? * PCP [facility] IN [place] ([place]) * Pharmacy [facility] * Preadmission Environment Home with Family * ADLs Partial Dependent * Partial ADLs (Assistance needed) Bathing Medication Management * Equipment CPAP Glucometer Nebulizer Other Oxygen Walker * Other Equipment PORTABLE O2 OXYGEN SUPPLIED BY CITIZEN OF [place] [facility] PATIENT * List name and contact numbers for known caregivers / representatives who currently or will assist patient after discharge: PIERRE GAR (CAREGIVER) [phone] * Verbal permission to speak to the caregivers and representatives has been obtained from the patient. Yes * Community resources currently utilized None * Additional services required to return to the preadmission environment? Yes * Can the patient safely return to the preadmission environment? Yes * Has this patient been hospitalized within the prior 30 days at any hospital? Yes Last DP export: 09/20/18 8:04 a Patient Name: DONI GAR Page 48241 at 1132 All edits/amendments must be made on the electronic document DICTATION DATE: 09/24/18 1132 FUSELAGE FRAMER: ELI 09/24/18 1132 RPT#: [id number] DC DATE:09/23/18 STATUS: DIS IN [facility] [address] [place] [address] END OF REPORT
--- NOTE | ~2018-09-16 | CN ---
PATIENT NAME:DONI GAR MEDICAL RECORD: [id number] : 62 LOCATION:D.M2 D.2121 ADMIT DATE: 09/16/18 ACCOUNT: [id number] CONSULTING PHYSICIAN: RANJEET HACKETT MD REFERRING PHYSICIAN: DARCI BRIONES MD DATE OF CONSULTATION: 09/19/2018 CONSULT REQUESTING PHYSICIAN: Dr. Griffin. REASON FOR CONSULTATION: COPD status post right upper lobe lobectomy for a large bullous lesion, cellulitis of the left upper extremity. HISTORY OF PRESENT ILLNESS: Mr. Gar is a 58-year-old gentleman who was just discharged after his surgery for a large bullous lesion of the right upper lobe lobectomy. The patient has swelling and pain of the left upper extremities. The patient came into the ER. On evaluation, it was found that he was also in atrial fibrillation. Now, he is on Eliquis, nebulized medication. His heart rate is controlled and seen by Dr. Willett. REVIEW OF SYSTEMS: As in history of present illness. PAST MEDICAL HISTORY: 1. COPD. 2. Bullous lesion of the right upper lobe status post bullectomy. 3. Emphysema. 4. Gastroesophageal reflux disease. 5. Hypertension. 6. Obstructive sleep apnea, on CPAP machine. 7. Type 2 diabetes mellitus. PAST SURGICAL HISTORY: He is status post right upper lobe lobectomy. ALLERGIES: No known drug allergies. MEDICATIONS: C4 [employer] is reviewed. PERSONAL AND SOCIAL HISTORY: The patient is and lives with his . He is a nondrinker. FAMILY HISTORY: Noncontributory. PHYSICAL EXAMINATION: GENERAL: Now, the patient is lying comfortably. He is not in acute distress. VITAL SIGNS: The blood pressure 135/63, pulse is 66-78, SpO2 97% on 5 liters nasal cannula. HEENT: Conjunctivae are pink. Sclerae are not icteric. NECK: Supple, no JVD. CHEST: The chest excursion is minimal, but there are crackles at the right base. HEART: Rhythm regular, normal sound, no murmur. ABDOMEN: Soft, bowel sounds present. No hepatosplenomegaly. RECTAL: Deferred. EXTREMITIES: No cyanosis, no clubbing. No pedal edema. There is erythema of the left wrist and upper extremity and that has been improving. CONSULT REPORT [id number] DONI GAR LABORATORY DATA: CBC: The WBC is 28.4, hemoglobin 12.9, hematocrit 37.4, the platelet count is 350. Chemistry: Sodium 131, potassium 3.3, chloride 92, BUN is 17, creatinine 0.6. IMPRESSION: 1. Npxuj-dx-digudvs hypoxic respiratory failure. 2. Status post right upper lobe lobectomy for large bullous lesion. 3. Chronic obstructive pulmonary disease. 4. Leukocytosis. 5. Atrial fibrillation. 6. Cellulitis of the left upper extremity. 7. Gastroesophageal reflux. RECOMMENDATION: 1. Continue vancomycin and Zosyn. 2. Stop the albuterol, start him on Xopenex and ipratropium nebulizer. 3. Advair inhaler 2 puffs b.i.d. 4. Supplemental oxygen is required. Follow up labs and chest radiograph. The patient advised to keep his left arm elevated or [address] Griffin, thank you for involving me in the care of Mr. Gar. TRANSINT:[id number] Voice Confirmation ID: [id number] DOCUMENT ID: [id number] RANJEET HACKETT MD at 1234 CC: [id number] DICTATION DATE: 09/19/18 171 [employer] AND GAME CLUB MANAGER: 09/19/182109 DIS IN 09/23/18 [place] [id number] [place] [address]
--- NOTE | ~2018-09-16 | HP ---
PATIENT: DONI GAR MEDICAL RECORD: [id number] ACCOUNT: [id number] LOCATION:[facility] D.2302 : [birth year] ADMISSION DATE: 09/16/18 PCP: AMADO Woody HISTORY AND PHYSICAL EXAMINATION REASON FOR ADMISSION: Left wrist pain and swelling. HISTORY OF PRESENT ILLNESS: The patient is a 58-year-old male who underwent a right upper lobectomy for bullous emphysema last week. He states he went home from the hospital yesterday, noted some swelling in his left hand and knuckles. It became worse today and he presented to the Emergency Room for this reason and was found to have a cellulitis from an IV site. He was also found to be in uncontrolled atrial fib with rate of 155 beats per minute. He stated he had some low-grade fever and moderate pain. He has now been admitted for evaluation of his atrial fib and cellulitis treatment. 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 Willett; history of type 2 diabetes mellitus; essential hypertension; remote myocardial infarction; COPD; emphysema; pneumonia, on home oxygen; history of COPD, uses CPAP; history of pneumothorax; history of gastric ulcers; GERD; depression; and anxiety. ALLERGIES: None known. PAST SURGICAL HISTORY: Right upper lobectomy in August 2018. Negative cardiac cath. FAMILY HISTORY: Father , had emphysema. SOCIAL HISTORY: He is not , but has a partner. 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 HOME MEDICATIONS: Metformin 500 mg b.i.d.; Coreg 50 mg p.o. b.i.d.; Protonix 40 mg daily; montelukast 10 mg with evening meal; Mucinex ER 600 two tabs p.o. b.i.d.; Levaquin 500 mg p.o. daily, he has 2 days left; Symbicort 160/4.5 two puffs b.i.d.; Ventolin HFA 90 mcg two puffs q. 4 hours p.r.n. shortness of breath; Combivent Respimat two puffs inhaler q.i.d. REVIEW OF SYSTEMS: GENERAL: He has been fatigued. HEENT: No recent visual change, sinus congestion, sore throat, or hearing difficulty. RESPIRATORY: He said he has chronic shortness of breath, not worse than previous. He has some sharp chest pain on his incision site in right upper chest currently. CARDIAC: He notes his heart rate was elevated today. Denies chest pain of cardiac nature, PND, orthopnea. GASTROINTESTINAL: No nausea, vomiting, change in stool, or blood per rectum. GENITOURINARY: No incontinence. MUSCULOSKELETAL: He has pain in his left wrist currently and forearm. He has pain over his right upper shoulder referring to his scapular area from his recent surgery. He has intermittent lumbago without sciatica. PSYCHIATRIC: He admits to anxiety with some depressed mood in the past, fairly stable now. HISTORY AND PHYSICAL [id number] DONI GAR PHYSICAL EXAMINATION: VITAL SIGNS: Heart rate 155 and irregular, temperature 98.8 Fahrenheit orally, respirations 20, blood pressure 113/85, and sat of 96% on room air. HEENT: Normocephalic. Eyes are clear. NECK: No bruits or masses. CHEST: He has decreased breath sounds in the right upper lobe. Left lung shows decreased breath sounds as well. No crackles or retractions. Incision site is healing well on the right. HEART: Irregular rate without gallop. No murmur appreciated. ABDOMEN: Mildly obese, soft, and nontender. No organomegaly. GENITOURINARY: Deferred. EXTREMITIES: He has edema and erythema in his right volar wrist, over the radial head; and tenderness with spreading erythema into the forearm. His hand is edematous at 2+ and digits are as well edematous. NEUROVASCULAR: Intact. SKIN: Shows erythema of cellulitic in nature over his right forearm, hand, and wrist. LABORATORY DATA: His white count is 15,000 with left shift, H&H is 12 and 36.5 respectively. Chemistry; BUN and creatinine are 15 and 1.2, glucose is 135. Liver functions are normal. Cardiac enzymes are negative. INR is 1.14. D-dimer is 4.28. DIAGNOSTIC DATA: CT of chest protocol was performed due to his elevated D-dimer, which showed postsurgical changes in the right lung with some atelectasis in left lung base and trace left pleural effusion. Small hiatal hernia. Gas-filled proximal loop of the large bowel. CT of abdomen and pelvis otherwise unremarkable. Chest x-ray shows stable appearance of the chest postoperative with right-sided volume loss. EKG shows AFib with RVR, rate 155. Previous echo showed EF of 55%, trace aortic insufficiency, and tricuspid insufficiency. ASSESSMENT: 1. Uncontrolled atrial fibrillation, paroxysmal. 2. Recent right upper lobectomy for bullous emphysema. 3. Cellulitis, left wrist and say. 4. GERD. 5. Type 2 diabetes mellitus. PLAN: Sliding scale insulin. Resume home medications. Dr. Messer has started the patient on piperacillin and vancomycin. He is on IV Cardizem per Dr. Willett from cardiology. Further workup pending clinical course. TRANSINT:[id number] Voice Confirmation ID: [id number] DOCUMENT ID: [id number] HISTORY AND PHYSICAL [id number] DONI GAR TIMOTHY MD at 0800 CC: [id number] DICTATION DATE: 09/16/18 1705 SALES SERVICE PROMOTER: 09/16/18 1802 ADM IN [place] [address] [place] [address]
--- NOTE | ~2018-09-16 | MORECARE ---
CASE MANAGEMENT DISCHARGE SUMMARY PATIENT: DONI GAR UNIT: [id number] ADM DATE: 09/16/18 AGE: 58 : 62 SEX: M ROOM/BED: D.2121 AUTHOR: MICKEY MACIAS PHYSICIAN: REFERRING PHYSICIAN: DACRI BRIONES MD DATE OF SERVICE: 09/20/18 Discharge Plan Patient Name: DONI GAR [facility] [facility] 1960 Planned Disposition: Home or Self Care Anticipated Discharge Date: 09/22/18 Discharge Date: Expected LOS: 6 Initial Reviewer: [email or web address] Initial Review Date: 09/20/2018 Generated: 09/20/18 9:52 am DCPIA - Discharge Planning Initial Assessment Updated by [email or web address]: Jesenia Hernandez on 09/20/18 8:48 am * Is the patient Alert and Oriented? Yes * How many steps to enter\exit or inside your home? * [facility]CP [facility] ([place] * Pharmacy [facility] * Preadmission Environment Home with Family * ADLs Partial Dependent * Partial ADLs (Assistance needed) Bathing Medication Management * Equipment CPAP Glucometer Nebulizer Other Oxygen Walker * Other Equipment PORTABLE O2 OXYGEN SUPPLIED BY [facility] PATIENT * List name and contact numbers for known caregivers / representatives who currently or will assist patient after discharge: PIERRE GAR (CAREGIVER) [phone] * Verbal permission to speak to the caregivers and representatives has been obtained from the patient. Yes * Community resources currently utilized None * Additional services required to return to the preadmission environment? Yes * Can the patient safely return to the preadmission environment? Yes * Has this patient been hospitalized within the prior 30 days at any hospital? Yes Last DP export: 09/20/18 7:45 a Patient Name: DONI GAR Page 51857 at 0852 All edits/amendments must be made on the electronic document DICTATION DATE: 09/20/18851 CABLE MOCK UP ASSEMBLER: ELI 09/20/18851 RPT#: [id number] DC DATE: STATUS: ADM IN [facility] [address] [place] [address] END OF REPORT
[~2018-09-16 10:57] MED LIST changes: +ASPIRIN EC81 M1 PO; +ELIQUIS2.5 MG PO; +MUCINEX DM ER1 EAC1 PO; +PERCOCET 5-3251 TAB PO; +SINGULAIR10 MG PO; +fentanyl TRANSDERM
[2018-09-16 11:52] LABS: BASOPHILS 0.2 % (0-2); EOSINOPHILS 1.6 % (0-7); HEMATOCRIT 36.5 % (42.0-54.0); HEMOGLOBIN 12.1 g/dL (13.5-17.5); IMMATURE GRANULOCYTES 1.7 % (0-5); LYMPHOCYTES 9.1 % (15-50); MCH 29.7 pg (26.0-34.0); MCHC 33.2 g/dL (31.0-37.0); MCV 89.7 fL (80.0-100.0); MEAN PLATELET VOLUME 10.5 fL (7.4-10.4); MONOCYTES 11.2 % (2-11); NEUTROPHILS 76.2 % (40-80); RBC 4.07 10x6/uL (4.20-6.10); RDW 14.7 % (11.5-14.5); WBC 15.4 10x3/uL (4.8-10.8)
[2018-09-16 11:53] LABS: PLATELET COUNT 553 10x3/uL (130-400)
[2018-09-16 12:39] LABS: ALBUMIN 2.5 g/dL (3.4-5.0); ALKALINE PHOSPHATASE 71 U/L (46-116); ALT (SGPT) 29 U/L (10-68); BILIRUBIN - TOTAL 0.25 mg/dL (0.2-1.3); CALC OSMOLALITY 276 mosm/kg (275-300); CALCIUM 8.6 mg/dL (8.5-10.1); CARBON DIOXIDE 32.5 mmol/L (21.0-32.0); CHLORIDE - SERUM 98 mmol/L (98-107); CREATININE - SERUM 1.2 mg/dL (0.6-1.3); GLUCOSE 135 mg/dL (74-106); POTASSIUM - SERUM 3.9 mmol/L (3.5-5.1); PROTEIN - SERUM 7.2 g/dL (6.4-8.2); SODIUM 137 mmol/L (136-145); UREA NITROGEN 15 mg/dL (7-18); eGFR NON AFRICAN AMERICAN 66 mL/min (90-120)
[2018-09-16 12:56] LABS: CKMB 0.5 U/L (0.0-3.6); CREATINE KINASE 29 UL (21-232); TROPONIN-I < 0.017 ng/mL (0.000-0.060)
[2018-09-16 14:10] LABS: APTT 29.6 SECONDS (22.8-39.4); INR 1.14 (0.85-1.17); PROTIME 14.2 SECONDS (11.6-15.0)
[2018-09-16 14:18] LABS: D-DIMER-QUANTITATIVE 4.28 ug/mLFEU (0.20-0.54)
[2018-09-17] VITALS (24 sets, daily range): BP systolic 108–134; BP diastolic 73–98; Ht 182.9 cm; Wt 118.2 kg
[2018-09-17 04:09] LABS: BASOPHILS 0.2 % (0-2); EOSINOPHILS 2.4 % (0-7); HEMOGLOBIN 10.9 g/dL (13.5-17.5); IMMATURE GRANULOCYTES 1.3 % (0-5); LYMPHOCYTES 12.4 % (15-50); MCH 29.1 pg (26.0-34.0); MCHC 32.1 g/dL (31.0-37.0); MCV 90.7 fL (80.0-100.0); MONOCYTES 10.5 % (2-11); NEUTROPHILS 73.2 % (40-80); PLATELET COUNT 516 10x3/uL (130-400); RBC 3.75 10x6/uL (4.20-6.10); RDW 14.9 % (11.5-14.5); WBC 12.1 10x3/uL (4.8-10.8)
[2018-09-17 04:31] LABS: ALBUMIN 2.2 g/dL (3.4-5.0); ALKALINE PHOSPHATASE 60 U/L (46-116); ALT (SGPT) 27 U/L (10-68); BILIRUBIN - TOTAL 0.35 mg/dL (0.2-1.3); CALC OSMOLALITY 275 mosm/kg (275-300); CALCIUM 7.9 mg/dL (8.5-10.1); CARBON DIOXIDE 31.8 mmol/L (21.0-32.0); CHLORIDE - SERUM 99 mmol/L (98-107); GLUCOSE 127 mg/dL (74-106); POTASSIUM - SERUM 3.6 mmol/L (3.5-5.1); PROTEIN - SERUM 6.5 g/dL (6.4-8.2); SODIUM 137 mmol/L (136-145); UREA NITROGEN 12 mg/dL (7-18); eGFR NON AFRICAN AMERICAN 82 mL/min (90-120)
[2018-09-17] MEDS ORDERED: LASIX40 MG PO ×2 (14:12→14:13)
[2018-09-18] VITALS (24 sets, daily range): BP systolic 101–129; BP diastolic 69–93
[2018-09-19] VITALS (13 sets, daily range): BP systolic 101–127; BP diastolic 56–89
[2018-09-20 01:17] VITALS: BP 111/73
[2018-09-20 05:58] LABS: BASOPHILS 0.3 % (0-2); EOSINOPHILS 2.9 % (0-7); HEMATOCRIT 35.3 % (42.0-54.0); IMMATURE GRANULOCYTES 0.5 % (0-5); LYMPHOCYTES 15.3 % (15-50); MCH 28.9 pg (26.0-34.0); MCHC 31.2 g/dL (31.0-37.0); MCV 92.7 fL (80.0-100.0); MEAN PLATELET VOLUME 9.9 fL (7.4-10.4); MONOCYTES 12.5 % (2-11); NEUTROPHILS 68.5 % (40-80); PLATELET COUNT 596 10x3/uL (130-400); RBC 3.81 10x6/uL (4.20-6.10); RDW 14.8 % (11.5-14.5); WBC 10.6 10x3/uL (4.8-10.8)
[2018-09-20 06:15] LABS: ANION GAP 8.6 mmol/L (8-16); CALCIUM 8.5 mg/dL (8.5-10.1); CARBON DIOXIDE 34.1 mmol/L (21.0-32.0); CREATININE - SERUM 1.1 mg/dL (0.6-1.3); POTASSIUM - SERUM 3.7 mmol/L (3.5-5.1)
[2018-09-20 06:21] VITALS: BP 158/68
[2018-09-20 08:26] VITALS: BP 125/81
[2018-09-20 13:39] VITALS: BP 123/79
[2018-09-20 17:13] VITALS: BP 114/76
[2018-09-20 20:23] VITALS: BP 118/68
[2018-09-21 01:20] VITALS: BP 118/72
[2018-09-21 05:15] VITALS: BP 114/72
[2018-09-21 08:14] VITALS: BP 106/67
[2018-09-21 11:51] VITALS: BP 114/70
[2018-09-21 16:04] VITALS: BP 109/74
[2018-09-21 22:03] VITALS: BP 125/82
[2018-09-22 01:13] VITALS: BP 108/75
[2018-09-22 05:01] VITALS: BP 98/65
[2018-09-22 06:00] LABS: BASOPHILS 0.2 % (0-2); EOSINOPHILS 3.6 % (0-7); HEMATOCRIT 34.2 % (42.0-54.0); HEMOGLOBIN 10.8 g/dL (13.5-17.5); IMMATURE GRANULOCYTES 0.3 % (0-5); LYMPHOCYTES 14.1 % (15-50); MCH 29.1 pg (26.0-34.0); MCHC 31.6 g/dL (31.0-37.0); MCV 92.2 fL (80.0-100.0); MEAN PLATELET VOLUME 9.9 fL (7.4-10.4); MONOCYTES 12.6 % (2-11); NEUTROPHILS 69.2 % (40-80); PLATELET COUNT 561 10x3/uL (130-400); RBC 3.71 10x6/uL (4.20-6.10); RDW 14.7 % (11.5-14.5); WBC 8.8 10x3/uL (4.8-10.8)
[2018-09-22 06:16] LABS: ANION GAP 6.2 mmol/L (8-16); CALCIUM 8.4 mg/dL (8.5-10.1); CARBON DIOXIDE 35.3 mmol/L (21.0-32.0); CREATININE - SERUM 1.2 mg/dL (0.6-1.3); POTASSIUM - SERUM 3.5 mmol/L (3.5-5.1)
[2018-09-22 08:13] VITALS: BP 101/70
[2018-09-22 15:28] VITALS: BP 97/59
[2018-09-22 21:01] VITALS: BP 121/72
[2018-09-23] VITALS: BP 124/68
[2018-09-23 06:11] VITALS: BP 112/74
[2018-09-23] MEDS ORDERED: CARDIZEM CD120 MG PO (07:34)
[2018-09-23] MEDS ORDERED: CHRONULAC30 ML PO (07:34)
[2018-09-23 08:30] VITALS: BP 110/80
== END 2018-09-23 12:59 | disposition home or self-care (01) | DRG 602 ==
LOC: D.ER 10:57 → D.EDHOLD 14:55 → D.ICU 14:55 → D.M2 14:55 → D.ICU 14:57 → D.M2 09-19 11:14 → D.SDCHOLD 09-21 10:46 → D.M2 09-21 10:48 → D.SDCHOLD 09-21 10:54 → D.M2 09-21 10:55
PROVIDERS: Family Medicine; Radiology Diagnostic Radiology
PROC: B548ZZA Ultrasonography of Superior Vena Cava, Guidance (ICD-10-PCS; 2018-09-18)
PROC: 02HV33Z Insertion of Infusion Device into Superior Vena Cava, Percutaneous Approach (ICD-10-PCS; principal; 2018-09-18 17:00)
DX: L03.114 Cellulitis of left upper limb (principal); J96.21 Acute and chronic respiratory failure with hypoxia; I82.622 Acute embolism and thrombosis of deep veins of left upper extremity; L03.811 Cellulitis of head [any part, except face]; I48.92 Unspecified atrial flutter; K59.00 Constipation, unspecified; E11.65 Type 2 diabetes mellitus with hyperglycemia; J43.9 Emphysema, unspecified; K21.9 Gastro-esophageal reflux disease without esophagitis; F32.9 Major depressive disorder, single episode, unspecified; F41.9 Anxiety disorder, unspecified; I48.0 Paroxysmal atrial fibrillation; Z79.01 Long term (current) use of anticoagulants; G47.33 Obstructive sleep apnea (adult) (pediatric); D64.9 Anemia, unspecified

== ENCOUNTER → 2018-09-30 10:38 | Outpatient (CLI) | payer MEDICAID ==
[2018-09-17 10:27] VITALS: BMI 35.9
[~2018-09-30 10:38] MED LIST changes: +CARDIZEM CD120 MG PO; +CHRONULAC30 ML PO
== END | disposition home or self-care (01) ==
LOC: D.RAD 10:38
DX: J98.11 Atelectasis (principal); J90 Pleural effusion, not elsewhere classified

== ENCOUNTER → 2018-11-06 08:27 | Outpatient (CLI) | payer MEDICAID ==
[2018-09-17 10:27] VITALS: BMI 35.9
== END | disposition home or self-care (01) ==
LOC: D.RT 08:27
DX: J44.9 Chronic obstructive pulmonary disease, unspecified (principal)

== ENCOUNTER 2018-12-02 18:19 | Emergency (ER) | payer MEDICAID ==
[~2018-12-02] VITALS: Ht 182.9 cm; Wt 127.3 kg
[2018-12-02 18:40] VITALS: Ht 182.9 cm; Wt 127.3 kg
[2018-12-02] MEDS ORDERED: ROBAXIN500 MG PO (18:42)
[2018-12-02] MEDS ORDERED: STERAPRED DS 1010 MG PO (18:43)
[2018-12-02] MEDS ORDERED: COMBIVENT RESPIM4 GM INH (18:43)
[2018-12-02] MEDS ORDERED: BUSPIRONE HCL7.5 MG PO (18:44)
[2018-12-02] MEDS ORDERED: LEVAQUIN750 MG PO (18:45)
[2018-12-02] MEDS ORDERED: AVAPRO300 MG PO (18:45)
[2018-12-02] MEDS ORDERED: WELLBUTRIN SR150 MG PO (18:46)
[2018-12-02 19:23] LABS: KETONE - SERUM NEGATIVE (NEGATIVE)
[2018-12-02 19:26] LABS: ALKALINE PHOSPHATASE 86 U/L (46-116); ALT (SGPT) 34 U/L (10-68); CALC OSMOLALITY 286 mosm/kg (275-300); CALCIUM 8.5 mg/dL (8.5-10.1); CARBON DIOXIDE 25.5 mmol/L (21.0-32.0); CHLORIDE - SERUM 101 mmol/L (98-107); CREATININE - SERUM 1.3 mg/dL (0.6-1.3); GLUCOSE 301 mg/dL (74-106); POTASSIUM - SERUM 4.7 mmol/L (3.5-5.1); PROTEIN - SERUM 7.9 g/dL (6.4-8.2); SODIUM 137 mmol/L (136-145); UREA NITROGEN 19 mg/dL (7-18); eGFR NON AFRICAN AMERICAN 60 mL/min (90-120)
[2018-12-02 19:27] LABS: HEMATOCRIT 37.4 % (42.0-54.0); LYMPHOCYTES 9.1 % (15-50); MCH 27.4 pg (26.0-34.0); MCHC 31.6 g/dL (31.0-37.0); MEAN PLATELET VOLUME 10.1 fL (7.4-10.4); NEUTROPHILS 79.1 % (40-80); PLATELET COUNT 344 10x3/uL (130-400); WBC 14.7 10x3/uL (4.8-10.8)
[2018-12-02 19:28] LABS: BASOPHILS 0.2 % (0-2); HEMOGLOBIN 11.8 g/dL (13.5-17.5); IMMATURE GRANULOCYTES 0.5 % (0-5); MONOCYTES 10.1 % (2-11); RDW 14.8 % (11.5-14.5)
[2018-12-02 20:33] VITALS: BP 125/81
== END 2018-12-02 20:45 | disposition home or self-care (01) ==
LOC: D.ER 18:19
PROVIDERS: Emergency Medicine
DX: E11.65 Type 2 diabetes mellitus with hyperglycemia (principal); J44.9 Chronic obstructive pulmonary disease, unspecified; I10 Essential (primary) hypertension; Z99.81 Dependence on supplemental oxygen

== ENCOUNTER → 2019-04-14 11:07 | Outpatient (CLI) | payer MEDICAID | END | disposition home or self-care (01) | LOC: D.RAD 11:07 | DX: R07.9 Chest pain, unspecified (principal) ==

== ENCOUNTER → 2019-05-24 13:42 | Outpatient (CLI) | payer MEDICAID ==
[2018-12-02 18:40] VITALS: BMI 38.0
[~2019-05-24 13:42] MED LIST changes: +BUSPIRONE HCL7.5 MG PO; +ROBAXIN500 MG PO; +STERAPRED DS 1010 MG PO; +WELLBUTRIN SR150 MG PO
== END | disposition home or self-care (01) ==
LOC: D.RT 13:42
PROVIDERS: ATTEND Internal Medicine Pulmonary Disease
DX: J44.9 Chronic obstructive pulmonary disease, unspecified (principal)

== ENCOUNTER → 2019-07-05 12:30 | Outpatient (CLI) | payer OTHER ==
[2018-12-02 18:40] VITALS: BMI 38.0
== END | disposition home or self-care (01) ==
LOC: D.HCCARDIO 12:30
PROVIDERS: ATTEND Internal Medicine Cardiovascular Disease
DX: I10 Essential (primary) hypertension (principal)

== ENCOUNTER 2020-01-31 13:13 | Inpatient (IN) | payer OTHER ==
[~2020-01-31] VITALS: Ht 182.9 cm; Wt 123.7 kg
[2020-01-31] MEDS ORDERED: GLUCOTROL ER2.5 MG PO (13:21)
[2020-01-31] MEDS ORDERED: KLOR-CON 1010 MEQ PO (13:22)
[2020-01-31] MEDS ORDERED: LIPITOR10 MG PO (13:22)
[2020-01-31] MEDS ORDERED: OMEPRAZOLE20 M1 PO (13:23)
[2020-01-31] MEDS ORDERED: CARTIA XT120 MG PO (13:24)
[2020-01-31] MEDS ORDERED: PROAIR HFA8.5 G1 INH (13:25)
[2020-01-31 14:04] LABS: BASOPHILS 0.2 % (0-2); EOSINOPHILS 2.3 % (0-7); HEMATOCRIT 43.5 % (42.0-54.0); HEMOGLOBIN 13.9 g/dL (13.5-17.5); IMMATURE GRANULOCYTES 1.6 % (0-5); LYMPHOCYTES 18.9 % (15-50); MCH 29.3 pg (26.0-34.0); MCV 91.8 fL (80.0-100.0); MEAN PLATELET VOLUME 9.8 fL (7.4-10.4); MONOCYTES 11.2 % (2-11); NEUTROPHILS 65.8 % (40-80); PLATELET COUNT 399 10x3/uL (130-400); RBC 4.74 10x6/uL (4.20-6.10); RDW 16.4 % (11.5-14.5); WBC 18.8 10x3/uL (4.8-10.8)
[2020-01-31 14:15] LABS: CALC OSMOLALITY 279 mosm/kg (275-300); CALCIUM 9.1 mg/dL (8.5-10.1); CARBON DIOXIDE 28.5 mmol/L (21.0-32.0); CHLORIDE - SERUM 101 mmol/L (98-107); CREATININE - SERUM 1.1 mg/dL (0.6-1.3); GLUCOSE 130 mg/dL (74-106); POTASSIUM - SERUM 4.3 mmol/L (3.5-5.1); SODIUM 138 mmol/L (136-145); UREA NITROGEN 19 mg/dL (7-18); eGFR NON AFRICAN AMERICAN 73 mL/min (90-120)
[2020-01-31 14:15] LABS: APTT 24.5 SECONDS (22.8-39.4); INR 1.1 (0.85-1.17); PROTIME 14.2 SECONDS (11.6-15.0)
[2020-01-31 14:31] LABS: ALBUMIN 3.3 g/dL (3.4-5.0); ALKALINE PHOSPHATASE 67 U/L (30-120); ALT (SGPT) 33 U/L (10-68); BILIRUBIN - TOTAL 0.24 mg/dL (0.2-1.3); CKMB 1.2 U/L (0.0-3.6); CREATINE KINASE 49 UL (21-232); PRO BNP 145 pg/mL (0-125); PROTEIN - SERUM 7.1 g/dL (6.4-8.2)
[2020-01-31 14:32] LABS: TROPONIN-I < 0.017 ng/mL (0.000-0.060)
--- NOTE | 2020-01-31 18:38 | NUR ---
GAVE PT URINAL FOR STRICT I & O. STATED TO PT WE NEED URINE SPECIMEN AND TO CALL US WHEN HE COLELCTS IT. PT VERBALIZED UNDERSTANDING. GAVE PT INCENTIVE SPIROMETER AND SHEOWED PT HOW TO USE.
[2020-01-31 18:40] VITALS: BP 127/81; BMI 38.4
[2020-01-31 20:00] VITALS: BP 133/71
[2020-01-31 20:19] LABS: BILIRUBIN NEGATIVE (NEGATIVE); GLUCOSE NEGATIVE (NEGATIVE); KETONE NEGATIVE (NEGATIVE); NITRITE NEGATIVE (NEGATIVE); SPECIFIC GRAVITY 1.025 (1.005-1.020); UROBILINOGEN NORMAL (NORMAL)
--- NOTE | 2020-01-31 21:37 | NUR ---
EVENING ROUNDS COMPLETED. VSS, AAOX4, SPOUSE AT BEDSIDE. FSBS 181. PT REFUSE INSULIN. PT RESTING COMFORTABLY. DENIES ANY FURTHER NEEDS AT THIS TIME. WILL CPOC. CL WITHIN REACH, BED IN LOW, SR UP X2.
[2020-02-01 01:22] VITALS: BP 118/63
[2020-02-01 05:17] LABS: BASOPHILS 0.2 % (0-2); EOSINOPHILS 2.5 % (0-7); HEMATOCRIT 41.1 % (42.0-54.0); HEMOGLOBIN 12.9 g/dL (13.5-17.5); IMMATURE GRANULOCYTES 1.6 % (0-5); LYMPHOCYTES 19.5 % (15-50); MCH 28.7 pg (26.0-34.0); MCHC 31.4 g/dL (31.0-37.0); MCV 91.5 fL (80.0-100.0); MEAN PLATELET VOLUME 9.8 fL (7.4-10.4); MONOCYTES 11.3 % (2-11); NEUTROPHILS 64.9 % (40-80); PLATELET COUNT 364 10x3/uL (130-400); RBC 4.49 10x6/uL (4.20-6.10); RDW 16.5 % (11.5-14.5); WBC 14.9 10x3/uL (4.8-10.8)
[2020-02-01 05:55] VITALS: BP 145/87
[2020-02-01 05:57] LABS: ALBUMIN 2.9 g/dL (3.4-5.0); BILIRUBIN - TOTAL 0.26 mg/dL (0.2-1.3); CALCIUM 8.7 mg/dL (8.5-10.1); CARBON DIOXIDE 30.9 mmol/L (21.0-32.0); CREATININE - SERUM 1.2 mg/dL (0.6-1.3); MAGNESIUM - SERUM 1.9 mg/dL (1.8-2.4); POTASSIUM - SERUM 3.9 mmol/L (3.5-5.1); PROTEIN - SERUM 6.2 g/dL (6.4-8.2)
--- NOTE | 2020-02-01 07:00 | NUR ---
RECEIVED REPORT. ASSUMED CARE OF PATIENT. PATIENT RESTING IN BED ON RIGHT LATERAL SIDE WITH EYES OPEN. RESP EVEN AND UNLABORED. CALL LIGHT WITHIN REACH. PATIENT DENIES ANY NEEDS AT THIS TIME.
[2020-02-01 09:41] VITALS: BP 125/95
[2020-02-01 10:06] VITALS: BMI 38.9
--- NOTE | 2020-02-01 10:35 | NUR ---
HOME MEDICATIONS RESTARTED AT THIS TIME.
--- NOTE | 2020-02-01 11:30 | NUR ---
FSBS 256. 6 UNITS HUMULIN R ADMINISTERED PER SLIDING SCALE.
[2020-02-01 14:01] VITALS: BP 85/62
--- NOTE | 2020-02-01 15:29 | NUR ---
20 GAUGE IV REMOVED FROM RIGHT WRIST. CATHETER TIP INTACT. PRESSURE HELD X 2 MINS. 2X2 GAUZE APPLIED AND SECURED WITH TAPE. 20 GAUGE IV PLACED TO LEFT FOREARM X 1 STICK. GOOD BLOOD RETURN, EASY FLUSH. TAPED, DATED AND SECURED. TOLERATED IV PLACEMENT WELL. IV ABX NOW INFUSING ORDERED. NO DISTRESS. CALL LIGHT WITHIN REACH.
--- NOTE | 2020-02-01 16:33 | NUR ---
FSBS 253. 6 UNITS HUMULIN INSULIN PER SLIDING SCALE ADMINISTERED.
[2020-02-01 18:10] VITALS: BP 138/84
[2020-02-01 20:00] VITALS: BP 110/89
[2020-02-02 00:16] VITALS: BP 125/82
--- NOTE | 2020-02-02 01:31 | NUR ---
REC'D.CHGE. OF SHIFT IN BED WATCHING TV.RM. AIR. DENIES ANY FURTHER RESP. DISCOMFORT AT PRESENT TIME.RM AIR. WITH SOME C/O SOB ON MINIMAL ACTIVITY.WILL CONTINUE TO MONITOR FOR ANY ANY RESP. COMPLICATION AND FOLLOW CURRENT PLAN OF CARE.
[2020-02-02 05:15] VITALS: BP 124/89
[2020-02-02 05:23] LABS: BASOPHILS 0.1 % (0-2); EOSINOPHILS 1.8 % (0-7); HEMATOCRIT 42.6 % (42.0-54.0); HEMOGLOBIN 13.5 g/dL (13.5-17.5); IMMATURE GRANULOCYTES 1.1 % (0-5); MCH 28.7 pg (26.0-34.0); MCHC 31.7 g/dL (31.0-37.0); MCV 90.4 fL (80.0-100.0); MONOCYTES 10.7 % (2-11); NEUTROPHILS 68.3 % (40-80); PLATELET COUNT 347 10x3/uL (130-400); RBC 4.71 10x6/uL (4.20-6.10); RDW 16.2 % (11.5-14.5); WBC 13.9 10x3/uL (4.8-10.8)
--- NOTE | 2020-02-02 06:23 | NUR ---
I have reviewed this patient and I concur with the Shift Assessment completed by the Licensed Practical Nurse today this shift.
[2020-02-02 06:50] LABS: ALBUMIN 3.1 g/dL (3.4-5.0); ALKALINE PHOSPHATASE 74 U/L (30-120); ALT (SGPT) 41 U/L (10-68); BILIRUBIN - TOTAL 0.33 mg/dL (0.2-1.3); CALC OSMOLALITY 283 mosm/kg (275-300); CALCIUM 8.5 mg/dL (8.5-10.1); CARBON DIOXIDE 28.8 mmol/L (21.0-32.0); CHLORIDE - SERUM 99 mmol/L (98-107); GLUCOSE 241 mg/dL (74-106); MAGNESIUM - SERUM 2.1 mg/dL (1.8-2.4); POTASSIUM - SERUM 4.2 mmol/L (3.5-5.1); PROTEIN - SERUM 6.5 g/dL (6.4-8.2); SODIUM 137 mmol/L (136-145); UREA NITROGEN 19 mg/dL (7-18); eGFR NON AFRICAN AMERICAN 81 mL/min (90-120)
--- NOTE | 2020-02-02 07:10 | NUR ---
REPORT RECEIVED FROM APPAREL MERCHANDISER ANDPATIENT CARE ASSUMED. PATIENT LAYING IN BED ON BACK AWAKE, ALERT AND ORIENTED X 4. PATIENT IS STABLE AND VSS. PATIENT DENIES ANY NEEDS OR PAIN. WILL CONTINUE WITH PLAN OF CARE. SR UPX 2 BED IN LOW POSTIION AND CALL LIGHT IN REACH.
[2020-02-02 07:59] VITALS: BP 134/88
[2020-02-02 11:42] VITALS: BP 103/72
[2020-02-02 15:38] VITALS: BP 139/86
[2020-02-02 16:54] VITALS: Ht 182.9 cm; Wt 123.7 kg
--- NOTE | 2020-02-02 18:26 | NUR ---
PATIENT HAVING A FREQUENT NON - PRODUCTIVE COUGH. UNABLE TO COLLECT SPUTUM SPECIMEN.
[2020-02-02 20:18] VITALS: BP 99/73
[2020-02-03] VITALS (7 sets, daily range): BP systolic 110–146; BP diastolic 67–88
[2020-02-03 05:56] LABS: BASOPHILS 0 % (0-2); EOSINOPHILS 0.1 % (0-7); HEMATOCRIT 41.7 % (42.0-54.0); HEMOGLOBIN 13.4 g/dL (13.5-17.5); IMMATURE GRANULOCYTES 0.7 % (0-5); LYMPHOCYTES 6.4 % (15-50); MCH 28.6 pg (26.0-34.0); MCHC 32.1 g/dL (31.0-37.0); MCV 89.1 fL (80.0-100.0); MEAN PLATELET VOLUME 9.9 fL (7.4-10.4); MONOCYTES 3.5 % (2-11); NEUTROPHILS 89.3 % (40-80); PLATELET COUNT 350 10x3/uL (130-400); RBC 4.68 10x6/uL (4.20-6.10); WBC 15.4 10x3/uL (4.8-10.8)
[2020-02-03 06:18] LABS: ALKALINE PHOSPHATASE 72 U/L (30-120); ALT (SGPT) 40 U/L (10-68); BILIRUBIN - TOTAL 0.34 mg/dL (0.2-1.3); CALC OSMOLALITY 277 mosm/kg (275-300); CALCIUM 8.3 mg/dL (8.5-10.1); CARBON DIOXIDE 26.5 mmol/L (21.0-32.0); CHLORIDE - SERUM 98 mmol/L (98-107); GLUCOSE 281 mg/dL (74-106); MAGNESIUM - SERUM 2.2 mg/dL (1.8-2.4); POTASSIUM - SERUM 4.4 mmol/L (3.5-5.1); SODIUM 133 mmol/L (136-145); UREA NITROGEN 17 mg/dL (7-18); eGFR NON AFRICAN AMERICAN 81 mL/min (90-120)
--- NOTE | 2020-02-03 09:54 | NUR ---
Nutrition Follow-up: Eating well. Diet: Diabetic Cardiac PO intake: 75-100% Wt: 290# (02/01); 287# (01/31) Last BM: 02/01 per chart Labs noted: Na 133, Glu 281, Ca 8.3, Alb 3.0 Meds noted: Humulin, Protonix, Prednisone, Lasix, Florajen3 -Continue current diet as tolerated. -Monitor wt; noted daily wts ordered. -RD following.
--- NOTE | 2020-02-03 20:00 | NUR ---
ALERT RESTING IN BED, DENIES PAIN OR NEEDS, SEE SHIFT ASSESSMENT, CALL WIN MIMS
[2020-02-04 00:12] VITALS: BP 136/86
[2020-02-04 04:30] VITALS: BP 144/86
[2020-02-04 06:49] LABS: ALBUMIN 3.1 g/dL (3.4-5.0); ALKALINE PHOSPHATASE 76 U/L (30-120); ALT (SGPT) 31 U/L (10-68); BILIRUBIN - TOTAL 0.33 mg/dL (0.2-1.3); CALC OSMOLALITY 274 mosm/kg (275-300); CALCIUM 8.5 mg/dL (8.5-10.1); CHLORIDE - SERUM 99 mmol/L (98-107); MAGNESIUM - SERUM 2.4 mg/dL (1.8-2.4); PROTEIN - SERUM 6.8 g/dL (6.4-8.2); SODIUM 134 mmol/L (136-145); UREA NITROGEN 16 mg/dL (7-18); eGFR NON AFRICAN AMERICAN 81 mL/min (90-120)
[2020-02-04 06:50] LABS: GLUCOSE 200 mg/dL (74-106)
[2020-02-04 07:16] LABS: HEMATOCRIT 40.3 % (42.0-54.0); HEMOGLOBIN 12.9 g/dL (13.5-17.5); MCH 28.7 pg (26.0-34.0); MCV 89.6 fL (80.0-100.0); MEAN PLATELET VOLUME 10.1 fL (7.4-10.4); PLATELET COUNT 350 10x3/uL (130-400); RDW 16.1 % (11.5-14.5); WBC 20.4 10x3/uL (4.8-10.8)
[2020-02-04 09:30] LABS: LYMPHOCYTES 10 % (15-50); MONOCYTES 9 % (2-11); NEUTROPHILS 80 % (40-80); PLATELET ESTIMATE NORMAL
[2020-02-04 10:19] VITALS: BP 146/94
[2020-02-04 12:59] VITALS: BP 97/59
--- NOTE | 2020-02-04 15:11 | MORECARE ---
CASE MANAGEMENT DISCHARGE SUMMARY PATIENT: DONI GAR UNIT: [id number] ADM DATE: 01/31/20 AGE: 59 : 62 SEX: M ROOM/BED: D.2107 AUTHOR: MICKEY MACIAS PHYSICIAN: REFERRING PHYSICIAN: JENN KIM MD DATE OF SERVICE: 02/04/20 Discharge Plan Patient Name: DONI GAR Facility: [facility]:[place] : 1960 Planned Disposition: Home Anticipated Discharge Date: Discharge Date: Expected LOS: Initial Reviewer: [email or web address] Initial Review Date: 02/04/2020 Generated: 02/04/20 4:10 pm DCPIA - Discharge Planning Initial Assessment Updated by [email or web address]: Ashley Cervantes on 02/04/20 3:08 pm * Is the patient Alert and Oriented? Yes * How many steps to enter\exit or inside your home? 6/0 * PCP DR VALLEJO * Pharmacy [facility] * Preadmission Environment Home with Family * ADLs Independent * Equipment Oxygen * List name and contact numbers for known caregivers / representatives who currently or will assist patient after discharge: PIERRE MARTINEZ- [phone] * Verbal permission to speak to the caregivers and representatives has been obtained from the patient. Yes * Community resources currently utilized None * Additional services required to return to the preadmission environment? Yes * Can the patient safely return to the preadmission environment? Yes * Has this patient been hospitalized within the prior 30 days at any hospital? No Coverage Notice Reviewer: [email or web address] - Ashley Cervantes Notice Issued Date-Time: 02/04/2020 14:40 Notice Type: Patient Choice Letter Notice Delivered To: Patient Relationship to Patient: Licensing Officer Name: Delivery Method: HAND - Hand Delivered Karolyn Days: Prior Verbal Notification: Recipient Understood Notice: Yes Recipient Signature: Yes Med Rec Note Co-signed by Attending: Coverage Notice Comment: [facility] Patient Name: DONI GAR Page 30073 at 1511 All edits/amendments must be made on the electronic document DICTATION DATE: 02/04/20 151 PRESERVATIVE FILLER MACHINE OPERATOR: ELI 02/04/20 1510 RPT#: [id number] DC DATE: STATUS: ADM IN [facility] [address] [place] [address] END OF REPORT
--- NOTE | 2020-02-04 15:21 | MORECARE ---
CASE MANAGEMENT DISCHARGE SUMMARY PATIENT: DONI GAR UNIT: [id number] ADM DATE: 01/31/20 AGE: 59 : 62 SEX: M ROOM/BED: D.2218 AUTHOR: MICKEY MACIAS PHYSICIAN: REFERRING PHYSICIAN: JENN KIM MD DATE OF SERVICE: 02/04/20 Discharge Plan Patient Name: DONI GAR Facility: [facility]:[place] : 1960 Planned Disposition: Home Anticipated Discharge Date: Discharge Date: Expected LOS: Initial Reviewer: [id number] Initial Review Date: 02/04/2020 Generated: 02/04/20 4:20 pm Comments DCP- Discharge Planning Updated by [id number]: Ashley Cervantes on 02/04/20 2:[address] Patient Name: DONI GAR Admission Status: ER Accout number: [id number] Admission Date: 01-31-2020 : 1960 Admission Diagnosis:SHORTNESS OF BREATH Attending: JENN KIM Current LOS: 4 Planned Disposition: Home Primary Insurance: [employer] MANAGED MEDICAID Discharge Planning Comments: CM met with patient to complete initial dc planning assessment. CM educated patient on the CM role and verbal consent given by patient to complete assessment. CM verified patient's address, phone number, and emergency contact phone numbers. Patient lives at home with his and daughter. At discharge patient plans to return home and feels this is a safe discharge. CM discussed mobility of patient while in hospital.. Patient stated he has been in bed since he has been sick, and feels himself to be weaker. PT consulted. CM discussed availability of home health, rehab services, and medical equipment. Patient is agreeable to the use of home health if needed. Stated he will see what the PT thinks he needs. Transportation provider at discharge will be his , Sisi at [phone]. Pt states he uses home oxygen at night. 2 liters. HAMILTON signed to resume [facility] for home oxygen needs. CM will continue to follow and will assist as needed with dc plans/needs. Deputy Sheriff Bailiff: Ashley Cervantes MSN,RN CM DCPIA - Discharge Planning Initial Assessment Updated by [id number]: Ashley Cervantes on 02/04/20 3:08 pm * Is the patient Alert and Oriented? Yes * How many steps to enter\exit or inside your home? 6/0 * PCP DR VALLEJO * Pharmacy [facility] * Preadmission Environment Home with Family * ADLs Independent * Equipment Oxygen * List name and contact numbers for known caregivers / representatives who currently or will assist patient after discharge: SISI MARTINEZ- [phone] * Verbal permission to speak to the caregivers and representatives has been obtained from the patient. Yes * Community resources currently utilized None * Additional services required to return to the preadmission environment? Yes * Can the patient safely return to the preadmission environment? Yes * Has this patient been hospitalized within the prior 30 days at any hospital? No Coverage Notice Reviewer: [id number] Keegan Cervantes Notice Issued Date-Time: 02/04/2020 14:40 Notice Type: Patient Choice Letter Notice Delivered To: Patient Relationship to Patient: Greensman Name: Delivery Method: HAND - Hand Delivered Karolyn Days: Prior Verbal Notification: Recipient Understood Notice: Yes Recipient Signature: Yes Med Rec Note Co-signed by Attending: Coverage Notice Comment: [facility] Last DP export: 02/04/20 2:11 p Patient Name: DONI GAR Page [id number] at 1521 All edits/amendments must be made on the electronic document DICTATION DATE: 02/04/20 152 PEDIATRIC CARE COORDINATOR: ELI 02/04/20 152 RPT#: [id number] DC DATE: STATUS: ADM IN [facility] [address] [place] [address] END OF REPORT
[2020-02-04 18:16] VITALS: BP 134/94
--- NOTE | 2020-02-04 19:10 | NUR ---
BEDSIDE REPORT RECEIVED FROM DAY SHIFT, PT CARE ASSUMED. INTRODUCED SELF AND WROTE NAME ON BOARD. PT SITTING UP ON SIDE OF BED, WATCHING TV, AAOX4. DENIES ANY NEEDS AT THIS TIME. BED IN LOWEST POSITION, SR X1, CALL LIGHT WITHIN REACH. WILL CONTINUE TO MONITOR.
[2020-02-04 20:00] VITALS: BP 133/86
[2020-02-05] VITALS: BP 143/78
[2020-02-05 04:30] VITALS: BP 165/96
[2020-02-05 04:42] LABS: BASOPHILS 0 % (0-2); EOSINOPHILS 0.2 % (0-7); HEMATOCRIT 40.6 % (42.0-54.0); HEMOGLOBIN 12.8 g/dL (13.5-17.5); IMMATURE GRANULOCYTES 0.7 % (0-5); LYMPHOCYTES 9.2 % (15-50); MCH 28.6 pg (26.0-34.0); MCHC 31.5 g/dL (31.0-37.0); MCV 90.8 fL (80.0-100.0); MEAN PLATELET VOLUME 9.9 fL (7.4-10.4); MONOCYTES 10.8 % (2-11); NEUTROPHILS 79.1 % (40-80); PLATELET COUNT 334 10x3/uL (130-400); RBC 4.47 10x6/uL (4.20-6.10); RDW 16.1 % (11.5-14.5); WBC 16.5 10x3/uL (4.8-10.8)
[2020-02-05 05:09] LABS: ALBUMIN 2.9 g/dL (3.4-5.0); ALKALINE PHOSPHATASE 73 U/L (30-120); ALT (SGPT) 34 U/L (10-68); BILIRUBIN - TOTAL 0.29 mg/dL (0.2-1.3); CALC OSMOLALITY 278 mosm/kg (275-300); CALCIUM 8.5 mg/dL (8.5-10.1); CARBON DIOXIDE 27.3 mmol/L (21.0-32.0); CHLORIDE - SERUM 100 mmol/L (98-107); CREATININE - SERUM 0.9 mg/dL (0.6-1.3); GLUCOSE 197 mg/dL (74-106); MAGNESIUM - SERUM 2.2 mg/dL (1.8-2.4); POTASSIUM - SERUM 4.1 mmol/L (3.5-5.1); PROTEIN - SERUM 6.6 g/dL (6.4-8.2); SODIUM 136 mmol/L (136-145); UREA NITROGEN 17 mg/dL (7-18); eGFR NON AFRICAN AMERICAN > 90 mL/min (90-120)
--- NOTE | 2020-02-05 07:00 | NUR ---
RECEIVED REPORT. ASSUMED CARE OF PATIENT. PATIENT SITTING UP IN BED WITH RESP TREATMENT AT THIS TIME. PATIENT DENIES NEEDS. PATIENT STATES HE IS GLAD HE MAY GET TO GO HOME TODAY. CALL LIGHT WITHIN REACH. NO DISTRESS.
[2020-02-05 08:21] VITALS: BP 176/100
--- NOTE | 2020-02-05 08:24 | NUR ---
FSBS 203. 8 UNITS HUMULIN ADMINISTERED PER SLIDING SCALE.
--- NOTE | 2020-02-05 11:58 | NUR ---
fsbs 320. 12 units humulin administered per sliding scale.
[2020-02-05] MEDS ORDERED: SINGULAIR10 MG PO (12:55)
[2020-02-05] MEDS ORDERED: DALIRESP250 MCG PO (12:55)
[2020-02-05] MEDS ORDERED: PREDNISONE10 MG PO (12:56)
[2020-02-05 12:58] VITALS: BP 134/89
[2020-02-05] MEDS ORDERED: DOXYCYCLINE HY100 M2 PO (13:00)
--- NOTE | 2020-02-05 14:00 | NUR ---
22 GAUGE IV REMOVED FROM RIGHT HAND. CATHETER TIP INTACT. NO BLEEDING FROM SITE. 2X2 GAUZE APPLIED AND SECURED WITH BANDAID. TOLERATED IV REMOVAL WELL. PATIENT IS BEING DISCHARGED TO HOME.
--- NOTE | 2020-02-05 14:12 | NUR ---
DISCHARGE INSTRUCTIONS PROVIDED TO PATIENT. PATIENT VERBALIZED UNDERSTANDING OF ALL INSTRUCTIONS PROVIDED.
--- NOTE | 2020-02-05 14:32 | MORECARE ---
CASE MANAGEMENT DISCHARGE SUMMARY PATIENT: DONI GAR UNIT: [id number] ADM DATE: 01/31/20 AGE: 59 : 62 SEX: M ROOM/BED: D.8498 AUTHOR: MICKEY MACIAS PHYSICIAN: REFERRING PHYSICIAN: JENN KIM MD DATE OF SERVICE: 02/05/20 Discharge Plan Patient Name: DONI GAR Facility: [facility]:[place] : 1960 Planned Disposition: Home Anticipated Discharge Date: 02/05/20 Discharge Date: Expected LOS: 5 Initial Reviewer: [id number] Initial Review Date: 02/04/2020 Generated: 02/05/20 3:31 pm Comments DCP- Discharge Planning Updated by [email or web address]: Ashley Cervantes on 02/04/20 2:[address] Patient Name: DONI GAR Admission Status: ER Accout number: [id number] Admission Date: 01-31-2020 : 1960 Admission Diagnosis:SHORTNESS OF BREATH Attending: JENN KIM Current LOS: 4 Planned Disposition: Home Primary Insurance: [employer] MANAGED MEDICAID Discharge Planning Comments: CM met with patient to complete initial dc planning assessment. CM educated patient on the CM role and verbal consent given by patient to complete assessment. CM verified patient's address, phone number, and emergency contact phone numbers. Patient lives at home with his and daughter. At discharge patient plans to return home and feels this is a safe discharge. CM discussed mobility of patient while in hospital.. Patient stated he has been in bed since he has been sick, and feels himself to be weaker. PT consulted. CM discussed availability of home health, rehab services, and medical equipment. Patient is agreeable to the use of home health if needed. Stated he will see what the PT thinks he needs. Transportation provider at discharge will be his , Sisi at [phone]. Pt states he uses home oxygen at night. 2 liters. HAMILTON signed to resume [facility] for home oxygen needs. CM will continue to follow and will assist as needed with dc plans/needs. Superintendent Water And Sewer Systems: Ashley Cervantes MSN,RN CM DCPIA - Discharge Planning Initial Assessment Updated by [id number]: Ashley Cervantes on 02/04/20 3:08 pm * Is the patient Alert and Oriented? Yes * How many steps to enter\exit or inside your home? 6/0 * PCP DR VALLEJO * Pharmacy [facility] * Preadmission Environment Home with Family * ADLs Independent * Equipment Oxygen * List name and contact numbers for known caregivers / representatives who currently or will assist patient after discharge: SISI MARTINEZ- [phone] * Verbal permission to speak to the caregivers and representatives has been obtained from the patient. Yes * Community resources currently utilized None * Additional services required to return to the preadmission environment? Yes * Can the patient safely return to the preadmission environment? Yes * Has this patient been hospitalized within the prior 30 days at any hospital? No Coverage Notice Reviewer: [id number] - Ashley Cervantes Notice Issued Date-Time: 02/04/2020 14:40 Notice Type: Patient Choice Letter Notice Delivered To: Patient Relationship to Patient: Tongue And Groove Machine Operator Name: Delivery Method: HAND - Hand Delivered Karolyn Days: Prior Verbal Notification: Recipient Understood Notice: Yes Recipient Signature: Yes Med Rec Note Co-signed by Attending: Coverage Notice Comment: [facility] Reviewer: [id number] Keegan Hernandez Notice Issued Date-Time: 02/05/2020 14:20 Notice Type: IM Discharge Notice Notice Delivered To: Patient Relationship to Patient: Self Tongue And Groove Machine Operator Name: Delivery Method: HAND - Hand Delivered Karolyn Days: Prior Verbal Notification: Recipient Understood Notice: Yes Recipient Signature: Yes Med Rec Note Co-signed by Attending: Coverage Notice Comment: CM explained discharge IMM. Patient is anxious for discharge. Had no questions or concerns. signature obtained. Last DP export: 02/04/20 2:20 p Patient Name: DONI GAR Page [id number] at 1432 All edits/amendments must be made on the electronic document DICTATION DATE: 02/05/201430 WATCH HAIRSPRING ASSEMBLER: ELI 02/05/201430 RPT#: [id number] DC DATE: STATUS: ADM IN [facility] [address] [place] [address] END OF REPORT
--- NOTE | 2020-02-05 15:04 | MORECARE ---
CASE MANAGEMENT DISCHARGE SUMMARY PATIENT: DONI GAR UNIT: [id number] ADM DATE: 01/31/20 AGE: 59 : 62 SEX: M ROOM/BED: D.2282 AUTHOR: GILBERTODOC PHYSICIAN: REFERRING PHYSICIAN: JENN KIM MD DATE OF SERVICE: 02/05/20 Discharge Plan Patient Name: DONI GAR Facility: [facility]:[place] : 1960 Planned Disposition: Home Anticipated Discharge Date: 02/05/20 Discharge Date: Expected LOS: 5 Initial Reviewer: [id number] Initial Review Date: 02/04/2020 Generated: 02/05/20 4:03 pm Comments DCP- Discharge Planning Updated by [id number]: Neelam Hernandez on 02/05/20 1:[address] Late entry 1420 Physical therapy acute evaluation completed this AM. Patient is mobile and independent in his room. Gait was steady. Per Physical Therapy does not require skilled therapy at this time. CM spoke with the patient at the bedside. He did not feel he required nor did he desire any outpatient or home health services. DCP- Discharge Planning Updated by [id number]: Ashley Cervantes on 02/04/20 2:[address] Patient Name: DONI GAR Admission Status: ER Accout number: [id number] Admission Date: 01-31-2020 : 1960 Admission Diagnosis:SHORTNESS OF BREATH Attending: JENN KIM Current LOS: 4 Planned Disposition: Home Primary Insurance: [facility] MANAGED MEDICAID Discharge Planning Comments: CM met with patient to complete initial dc planning assessment. CM educated patient on the CM role and verbal consent given by patient to complete assessment. CM verified patient's address, phone number, and emergency contact phone numbers. Patient lives at home with his and daughter. At discharge patient plans to return home and feels this is a safe discharge. CM discussed mobility of patient while in hospital.. Patient stated he has been in bed since he has been sick, and feels himself to be weaker. PT consulted. CM discussed availability of home health, rehab services, and medical equipment. Patient is agreeable to the use of home health if needed. Stated he will see what the PT thinks he needs. Transportation provider at discharge will be his , Sisi at [phone]. Pt states he uses home oxygen at night. 2 liters. HAMILTON signed to resume [facility] for home oxygen needs. CM will continue to follow and will assist as needed with dc plans/needs. Nuclear Security Officer: Ashley Cervantes MSN,RN CM DCPIA - Discharge Planning Initial Assessment Updated by [id number]: Ashley Cervantes on 02/04/20 3:08 pm * Is the patient Alert and Oriented? Yes * How many steps to enter\exit or inside your home? 6/0 * PCP DR VALLEJO * Pharmacy [facility] * Preadmission Environment Home with Family * ADLs Independent * Equipment Oxygen * List name and contact numbers for known caregivers / representatives who currently or will assist patient after discharge: SISI - [phone] * Verbal permission to speak to the caregivers and representatives has been obtained from the patient. Yes * Community resources currently utilized None * Additional services required to return to the preadmission environment? Yes * Can the patient safely return to the preadmission environment? Yes * Has this patient been hospitalized within the prior 30 days at any hospital? No Coverage Notice Reviewer: [id number] - Ashley Cervantes Notice Issued Date-Time: 02/04/2020 14:40 Notice Type: Patient Choice Letter Notice Delivered To: Patient Relationship to Patient: Mft Name: Delivery Method: HAND - Hand Delivered Karolyn Days: Prior Verbal Notification: Recipient Understood Notice: Yes Recipient Signature: Yes Med Rec Note Co-signed by Attending: Coverage Notice Comment: [facility] Reviewer: [id number] - Neelam Hernandez Notice Issued Date-Time: 02/05/2020 14:20 Notice Type: IM Discharge Notice Notice Delivered To: Patient Relationship to Patient: Self Mft Name: Delivery Method: HAND - Hand Delivered Karolyn Days: Prior Verbal Notification: Recipient Understood Notice: Yes Recipient Signature: Yes Med Rec Note Co-signed by Attending: Coverage Notice Comment: CM explained discharge IMM. Patient is anxious for discharge. Had no questions or concerns. signature obtained. Last DP export: 02/05/20 1:32 p Patient Name: DONI GAR Page [id number] at 1504 All edits/amendments must be made on the electronic document DICTATION DATE: 02/05/20 150 DENTAL DETAIL REPRESENTATIVE: ELI 02/05/20 1503 RPT#: [id number] DC DATE: STATUS: ADM IN [facility] [address] [place] [address] END OF REPORT
--- NOTE | 2020-02-05 15:13 | NUR ---
PATIENT LEFT UNIT VIA WHEELCHAIR AT 1500. PATIENT DISCHARGED TO HOME. PATIENT LEFT UNIT WITH ALL PERSONAL BELONGINGS IN STABLE CONDITION. NO DISTRESS UPON DISCHARGING TO HOME AT THIS TIME.
--- NOTE | 2020-02-06 16:01 | MORECARE ---
CASE MANAGEMENT DISCHARGE SUMMARY PATIENT: DONI GAR UNIT: [id number] ADM DATE: 01/31/20 AGE: 59 : 62 SEX: M ROOM/BED: D.2101 AUTHOR: GILBERTO,DOC PHYSICIAN: REFERRING PHYSICIAN: JENN KIM MD DATE OF SERVICE: 02/06/20 Discharge Plan Patient Name: DONI GAR Facility: [facility]:[place] : 1960 Planned Disposition: Home Anticipated Discharge Date: 02/05/20 Discharge Date: 02/05/2020 Expected LOS: 5 Initial Reviewer: [email or web address] Initial Review Date: 02/04/2020 Generated: 02/06/20 5:01 pm Comments DCP- Discharge Planning Updated by [email or web address]: Neelam Hernandez on 02/05/20 1:[address] Late entry 1420 Physical therapy acute evaluation completed this AM. Patient is mobile and independent in his room. Gait was steady. Per Physical Therapy does not require skilled therapy at this time. CM spoke with the patient at the bedside. He did not feel he required nor did he desire any outpatient or home health services. DCP- Discharge Planning Updated by [id number]: Ashley Cervantes on 02/04/20 2:[address] Patient Name: DONI GAR Admission Status: ER Accout number: [id number] Admission Date: 01-31-2020 : 1960 Admission Diagnosis:SHORTNESS OF BREATH Attending: JENN KIM Current LOS: 4 Planned Disposition: Home Primary Insurance: [facility]ICA[facility] Discharge Planning Comments: CM met with patient to complete initial dc planning assessment. CM educated patient on the CM role and verbal consent given by patient to complete assessment. CM verified patient's address, phone number, and emergency contact phone numbers. Patient lives at home with his and daughter. At discharge patient plans to return home and feels this is a safe discharge. CM discussed mobility of patient while in hospital.. Patient stated he has been in bed since he has been sick, and feels himself to be weaker. PT consulted. CM discussed availability of home health, rehab services, and medical equipment. Patient is agreeable to the use of home health if needed. Stated he will see what the PT thinks he needs. Transportation provider at discharge will be his , Sisi at [phone]. Pt states he uses home oxygen at night. 2 liters. HAMILTON signed to resume [facility] for home oxygen needs. CM will continue to follow and will assist as needed with dc plans/needs. Drive Away Driver: Ashley HAIR,RN CM DCPIA - Discharge Planning Initial Assessment Updated by [id number]: Ashley Cervantes on 02/04/20 3:08 pm * Is the patient Alert and Oriented? Yes * How many steps to enter\exit or inside your home? 6/0 * PCP DR VALLEJO * Pharmacy [facility] * Preadmission Environment Home with Family * ADLs Independent * Equipment Oxygen * List name and contact numbers for known caregivers / representatives who currently or will assist patient after discharge: SISI - [phone] * Verbal permission to speak to the caregivers and representatives has been obtained from the patient. Yes * Community resources currently utilized None * Additional services required to return to the preadmission environment? Yes * Can the patient safely return to the preadmission environment? Yes * Has this patient been hospitalized within the prior 30 days at any hospital? No Coverage Notice Reviewer: [id number] - Ashley Cervantes Notice Issued Date-Time: 02/04/2020 14:40 Notice Type: Patient Choice Letter Notice Delivered To: Patient Relationship to Patient: Avionics Systems Technician Name: Delivery Method: HAND - Hand Delivered Karolyn Days: Prior Verbal Notification: Recipient Understood Notice: Yes Recipient Signature: Yes Med Rec Note Co-signed by Attending: Coverage Notice Comment: [facility] Reviewer: [id number] - Neelam Hernandez Notice Issued Date-Time: 02/05/2020 14:20 Notice Type: IM Discharge Notice Notice Delivered To: Patient Relationship to Patient: Self Avionics Systems Technician Name: Delivery Method: HAND - Hand Delivered Karolyn Days: Prior Verbal Notification: Recipient Understood Notice: Yes Recipient Signature: Yes Med Rec Note Co-signed by Attending: Coverage Notice Comment: CM explained discharge IMM. Patient is anxious for discharge. Had no questions or concerns. signature obtained. Last DP export: 02/05/20 2:04 p Patient Name: DONI GAR Page [id number] at 1601 All edits/amendments must be made on the electronic document DICTATION DATE: 02/06/201600 REGULATORY COMPLIANCE OFFICER: ELI 02/06/20 160 RPT#: [id number] DC DATE:02/05/20 STATUS: DIS IN [facility] [address] [place] [address] END OF REPORT
== END 2020-02-05 15:00 | disposition home or self-care (01) | DRG 178 ==
LOC: D.ER 13:13 → D.M2 16:59
PROVIDERS: Emergency Medicine; Family Medicine; ADMIT Family Medicine; ATTEND Family Medicine
DX: J15.6 Pneumonia due to other Gram-negative bacteria (principal); J98.11 Atelectasis; J43.9 Emphysema, unspecified; J15.212 Pneumonia due to Methicillin resistant Staphylococcus aureus; K21.9 Gastro-esophageal reflux disease without esophagitis; E11.65 Type 2 diabetes mellitus with hyperglycemia; I48.91 Unspecified atrial fibrillation; I11.0 Hypertensive heart disease with heart failure; I50.9 Heart failure, unspecified

== ENCOUNTER 2020-04-14 17:08 | Emergency (ER) | payer OTHER ==
[~2020-04-14] VITALS: Ht 182.9 cm; Wt 129.1 kg
[~2020-04-14 17:08] MED LIST changes: +CARTIA XT120 MG PO; +DALIRESP250 MCG PO; +DOXYCYCLINE HY100 M2 PO; +GLUCOTROL ER2.5 MG PO; +KLOR-CON 1010 MEQ PO; +LIPITOR10 MG PO; +OMEPRAZOLE20 M1 PO; +PROAIR HFA8.5 G1 INH
[2020-04-14 17:25] VITALS: Ht 182.9 cm; Wt 129.1 kg
[2020-04-14] MEDS ORDERED: TYLENOL W/CODEI1 TAB PO (18:27)
[2020-04-14] MEDS ORDERED: VIBRAMYCIN 100100 MG PO (18:27)
[2020-04-14 20:22] VITALS: BP 134/87
== END 2020-04-14 20:22 | disposition home or self-care (01) ==
LOC: D.ER 17:08
DX: L03.312 Cellulitis of back [any part except buttock and flank] (principal); E11.9 Type 2 diabetes mellitus without complications; I11.0 Hypertensive heart disease with heart failure; I50.9 Heart failure, unspecified; I48.91 Unspecified atrial fibrillation; K21.9 Gastro-esophageal reflux disease without esophagitis; Z79.84 Long term (current) use of oral hypoglycemic drugs

== ENCOUNTER → 2020-04-18 17:02 | Outpatient (CLI) | payer OTHER ==
[2020-04-14 17:25] VITALS: BMI 38.6
[~2020-04-18 17:02] MED LIST changes: +TYLENOL W/CODEI1 TAB PO
== END | disposition home or self-care (01) ==
LOC: D.LABREF 17:02
PROVIDERS: ATTEND Surgery
DX: L02.212 Cutaneous abscess of back [any part, except buttock and flank] (principal)

== ENCOUNTER → 2020-07-16 12:25 | Outpatient (CLI) | payer OTHER ==
[2020-04-14 17:25] VITALS: BMI 38.6
== END | disposition home or self-care (01) ==
LOC: D.LAB 12:25
PROVIDERS: ATTEND Internal Medicine Pulmonary Disease
DX: J44.9 Chronic obstructive pulmonary disease, unspecified (principal); Z11.59 Encounter for screening for other viral diseases

== ENCOUNTER → 2020-07-18 09:22 | Outpatient (CLI) | payer OTHER ==
[2020-04-14 17:25] VITALS: BMI 38.6
== END | disposition home or self-care (01) ==
LOC: D.RT 07-04 15:00
PROVIDERS: ATTEND Internal Medicine Pulmonary Disease
DX: J44.9 Chronic obstructive pulmonary disease, unspecified (principal)

== ENCOUNTER → 2021-01-11 09:24 | Outpatient (CLI) | payer OTHER ==
[2020-12-05 09:37] VITALS: BMI 35.9
[~2021-01-11 09:24] MED LIST changes: +FLORAJEN3 CAPS460 MG PO; +FLUTICASONE PRO16 GM NASAL; +KLONOPIN1 MG PO; +MELATONIN 3 MG1 TAB PO; +SPIRIVA RESPIMAT4 GM INH; +TERBINAFINE HC250 MG PO; +TESSALON PERLE100 MG PO; +ZITHROMAX250 MG PO
== END | disposition home or self-care (01) ==
LOC: D.RT 01-04 10:30
PROVIDERS: ATTEND Internal Medicine Pulmonary Disease
DX: J44.9 Chronic obstructive pulmonary disease, unspecified (principal)

== ENCOUNTER → 2021-02-05 14:44 | Outpatient (CLI) | payer OTHER ==
[2020-12-05 09:37] VITALS: BMI 35.9
== END | disposition home or self-care (01) ==
LOC: D.LAB 14:44
PROVIDERS: ATTEND Internal Medicine Pulmonary Disease
DX: Z11.52 Encounter for screening for COVID-19 (principal)

== ENCOUNTER → 2021-02-09 14:07 | Outpatient (CLI) | payer OTHER ==
[2020-12-05 09:37] VITALS: BMI 35.9
== END | disposition home or self-care (01) ==
LOC: D.RT 14:00
PROVIDERS: ATTEND Internal Medicine Pulmonary Disease
DX: J44.9 Chronic obstructive pulmonary disease, unspecified (principal)